=== PATIENT | female | born 1935 ===

== ENCOUNTER → 2017-12-22 | Day surgery (SDC) | payer BC ==
[2017-12-19 10:54] VITALS: Ht 165.1 cm; Wt 69.5 kg
[~2017-12-22] VITALS: Ht 165.1 cm; Wt 69.5 kg
[~2017-12-22] MED LIST: 500ML BSSPLUS 0.5ML EPI1:1000 IRRIG ONE; ACETAMINOPHEN 325 MG TAB PO PRN; AMLO5TAB2 PO; ASPI81TA28 PO; ATROPINE SULFATE 0.1 MG/ML 5ML SYR IV PRN; ATROPINE SULFATE 1% OP OINT PER APPLICATION CHARGE ONE; BSS FLUSH ONE; BUPIVACAINE HCL 0.75% 10 ML AMP/VIAL ONE; CALC0.2510 PO; CEFAZOLIN SOD 1 GM VIAL ONE; CLOP1TAB54 PO; DEXAMETHASONE SOD INJ 4 MG/ML VIAL ONE; EpHEDrine SULFATE INJ 50 MG/ML AMP IV PRN; EpINEphrine INJ 1MG/ML AMP 1 MG/ML AMP ONE; FENTANYL CITRATE INJ 50 MCG/1 ML 2 ML VIAL ONE; HYALURONIDASE HUMAN 150 UNIT/ML INJ ONE; HYDR-4717 PO; HYDR-5688 PO; INDOCYANINE GREEN 25 MG/10 ML ONE; IRBE-43 PO; LACTATED RINGER'S 1000ML 500 ML IV SCH; LIDOCAINE HCL 2% 2 ML VIAL (20MG/ML) ONE; MAGN400T6 PO; METO50TA16 PO; NEOMYCIN/POLYMYX/DEXAMETH OP OINT PER APP CHARGE ONE; OCUCOAT 1 ML SOLN IO ONE; OMEG10007 PO; PATIENT'S ALLERGY INFO NEEDS ENTERED SCH; POVIDONE-IODINE OP SOLN (SURGERY CNTR CHARGING ONLY) ONE; PRAV80TA2 PO; PROPARACAINE 0.5% OP SOLN PER DROP CHARGE OPR SCH; PROPOFOL IV EMULSION 10 MG/ML 20 ML VIAL IV ONE; TIMOLOL MALEATE 0.5% OP SOLN PER DROP CHARGE ONE; TRIAMCINOLONE ACETONIDE OPHTH 40 MG/ML VIAL STERILE IO ONE; VANCOMYCIN HCL 1000MG/20ML VIAL ONE
[2017-12-22] MEDS: PHENYLEPHRINE HCL 2.5% OP SOLN PER DROP CHARGE OPR SCH ×2 (11:08→11:13)
[2017-12-22] MEDS: TROPICAMIDE 1% OP SOLN PER DROP CHARGE OPR SCH ×2 (11:09→11:14)
--- NOTE | 2017-12-22 12:23 | History & Physical Bridge - SC ---
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 I have examined the patient, reviewed the History & Physical and in the interval since the performance of the History & Physical I have noted the following changes of clinical significance: No changes noted
--- NOTE | 2017-12-22 13:43 | [facility] Operative Report ---
Operative Report Date of Service Dec 22, 2017. Operative Report PREOPERATIVE DIAGNOSIS: Vitreomacular traction with lamellar macular hole, right eye. ICD10 CODE: H35.341 POSTOPERATIVE DIAGNOSIS: same. PROCEDURE: 1. Pars plana vitrectomy, 23 gauge. 2. Membrane peeling of the internal limiting membrane. 3. Fluid-air exchange. 4. Air-gas exchange w/ SF6 20 %. All to the right eye. CPT CODE: 68573 SURGEON: Gaurav Brown D.O. COMPLICATIONS: None. ESTIMATED BLOOD LOSS: None. SPECIMENS: None. ANESTHESIA: Retrobulbar block and MAC. INDICATIONS FOR PROCEDURE: The patient has a macular hole that is visually significant. Vitrectomy surgery is indicated to decrease risk of vision loss and potentially improve vision. CONSENT: The risks, benefits and alternatives were discussed with the patient including but not limited to decreased visual acuity, failure to achieve desired results, loss of the eye, infection, pain, glaucoma, lens changes, retinal tears, retinal detachment, the need for more procedures, drooping of the eyelid, blindness, and double vision. The patient is aware of risks and consents to the surgery. Consent is signed and on the chart. OPERATION AND FINDINGS: The patient was brought to the operating room where the patient was identified by name, date, and medical record number. The surgical site was confirmed with the informed written consent. The patient was sedated by the anesthesiology team after which a 50:50 mixture of 2% lidocaine and 0.75% bupivacaine with hyaluronidase was administered in a standard retrobulbar fashion. A total of 4 ml was administered without difficulty. The patient was then prepped and draped in the usual sterile manner for retinal surgery. A wire lid speculum was placed and an Elroy 23-gauge trocar cannula system was employed. The inferior temporal trocar cannula was first placed in an angled fashion 3.75mm posterior to the surgical limbus and the infusion cannula was inserted into this cannula after which the intravitreal position was verified prior to turning the infusion on. Two more trocar cannulas were then inserted in an angled fashion, one in the superior temporal, and one in the superior nasal quadrant both 3.75mm posterior to the surgical limbus. A light pipe and vitrector were then introduced into the eye and the BIOM wide angle viewing system was brought into place. Standard core vitrectomy was performed and the vitreous was insured to be totally detached from the posterior pole with the aid of the vitrector. Next 0.05ml of indocyanine green was placed over the macular surface to stain the internal limiting membrane. This was washed from the eye after 10 seconds. At this point a flat contact lens was placed on the surface of the eye and a flex scraper and ILM forceps were then used to gently peel the internal limiting membrane surrounding the lamellar macular hole without difficulty. At this point scleral depression was performed for 360 degrees and no retinal tears or detachments were noted. A soft tip cannula was used to perform a fluid- air exchange. Next, SF6 20% was injected in through the infusion cannula for a complete gas fill of the eye. The trocar cannulas were then removed and found to be air tight. The intraocular pressure was found to be within normal limits by palpation and subconjunctival injections of Kefzol and dexamethasone were administered inferiorly and superiorly. The wire lid speculum was removed. Maxitrol and timolol were applied to the surface of the eye. A light patch and shield were taped over the surface of the eye and the patient left the Operating Room in stable condition having tolerated the procedure well. DISPOSITION: A gas bracelet was placed on the patients wrist. The patient was instructed to maintain a face down position overnight. The patient is to call immediately if there are any problems overnight. I attest to the content of the Intraoperative Record and any orders documented therein. Any exceptions are noted below.
--- NOTE | 2017-12-22 13:44 | Discharge Instructions-SurgCtr ---
Discharge Instructions Date of Service Dec 22, 2017. Visit Reason for Visit: Right Eye Vitreomacular Traction Discharge Discharge Diagnosis / Problem: same Discharge Goals Goal(s): Improve function Activity Recommendations Activity Limitations: resume your previous activity Anesthesia . Post Anesthesia Instructions: If you have had General Anesthesia or IV Sedation: * Do not drive today. * Resume driving when surgeon permits. * Do not make important decisions or sign legal documents today. * Call surgeon for: 1. Temperature elevations greater than 101 degrees F. 2. Uncontrollable pain. 3. Excessive bleeding. 4. Persistent nausea and vomiting. 5. Medication intolerance (nausea, vomiting or rash). * For nausea and vomiting use only clear liquids such as: tea, soda, bouillon until nausea subsides, then gradually increase diet as tolerated. * If you have any concerns or questions, call your surgeon's office. If physician is unavailable and it is an emergency, call 911 or go to the nearest emergency room. . Instructions / Follow-Up Instructions / Follow-Up * May take Tylenol if needed for discomfort. * Do NOT lay flat on back and position head as follows: face forward chin down as much as possible. Sleep on left side. * Do NOT remove green bracelet until instructed to do so by your surgeon and follow these precautions: * No air travel * No travel above 2500 feet * No nitrous oxide (N2O). * Do NOT remove eye shield. * NO straining, heavy lifting (>15 pounds) or bending below waist. * Avoid getting water or soap directly into operative eye. * Do NOT rub eye. If you experience increasing eye pain not relieved by medication, please contact us immediately at [phone]. If you are unable to reach someone at the above number, call [phone] and ask to speak with the EYE DOCTOR FLEET DRIVER. Inform them that you are a Dr. Brown patient who had recent surgery. Diet Recommendations Home Diet: resume previous diet Procedures Procedures Performed: Right Eye Vitrectomy 23 Gauge, Membrane Peeling, Instillation of SF6 gas Pending Studies Studies pending at discharge: no Medical Emergencies . Who to Call and When: Medical Emergencies: If at any time you feel your situation is an emergency, please call 911 immediately. . Non-Emergent Contact Non-Emergency issues call your: House Registry Rn . . "Provider Documentation" section prepared by Gaurav Brown. .
[2017-12-22 13:45] VITALS: TEMP 36.7
--- NOTE | 2017-12-22 14:08 | Anesthesia Progress Nt - [facility] ---
Anesthesia Post Op Note Date & Time Dec 22, 2017 at 14:07 Vital Signs Pain Intensity: 0 Vital Signs Past 12 Hours Date Time Temp Pulse Resp B/P (MAP) Pulse Ox O2 Delivery O2 Flow Rate FiO2 12/22/17 13:45 36.7 63 16 152/74 (100) 95 Room Air 12/22/17 10:59 36.7 52 16 139/70 (93) 95 Room Air Notes Mental Status: alert / awake / arousable, participated in evaluation Pt Amnestic to Procedure: Yes Nausea / Vomiting: adequately controlled Pain: adequately controlled Airway Patency, RR, SpO2: stable & adequate BP & HR: stable & adequate Hydration State: stable & adequate Anesthetic Complications: no major complications apparent
[2017-12-22 14:19] VITALS: BP 148/76; PULSE 56; O2SAT 95
== END | disposition home or self-care (01) ==
LOC: X.SURG 10:35
PROVIDERS: ATTEND Ophthalmology
DX: H43.821 Vitreomacular adhesion, right eye (principal); H35.341 Macular cyst, hole, or pseudohole, right eye; J44.9 Chronic obstructive pulmonary disease, unspecified; G47.33 Obstructive sleep apnea (adult) (pediatric); I25.10 Atherosclerotic heart disease of native coronary artery without angina pectoris; Z98.61 Coronary angioplasty status; I10 Essential (primary) hypertension; M19.90 Unspecified osteoarthritis, unspecified site; I25.2 Old myocardial infarction; Z86.73 Personal history of transient ischemic attack (TIA), and cerebral infarction without residual deficits; Z85.828 Personal history of other malignant neoplasm of skin; Z98.890 Other specified postprocedural states; Z79.82 Long term (current) use of aspirin

== ENCOUNTER 2019-06-08 13:33 | Inpatient (IN) ==
[2019-06-08] MEDS ORDERED: SODIUM CHLORIDE 0.9% 500 ML IV SCH (14:00)
[2019-06-08] MEDS: MAGNESIUM SULFATE / D5W 1 GM/100 ML BAG IV SCH ×3 (14:11→17:07)
[2019-06-08] MEDS: METOPROLOL TARTRATE 1 MG/ML VIAL IV PRN ×2 (14:14→14:34)
[2019-06-08 14:15] LABS: Albumin Level 3.4 gm/dl (3.4-5.0); Calcium 9.5 mg/dl (8.5-10.1); Creatinine Clr Calc Pharmacy 19.5 ml/min; Est GFR (African American) 23.6; Est GFR (Non-African American) 20.4
[2019-06-08 14:16] LABS: Basophils # (auto) 0.05 K/uL (0-0.2); Basophils % (auto) 0.5 %; Eosinophils # (auto) 0.16 K/uL (0-0.5); Eosinophils % (auto) 1.7 %; Hematocrit (blood only) 34.3 % (37-47); Hemoglobin 11.5 g/dL (12.0-16.0); Immature Granulocytes # (auto) 0.02 K/uL (0.00-0.02); Immature Granulocytes % (auto) 0.2 %; Lymphocytes # (auto) 1.29 K/uL (1.2-3.4); Lymphocytes % (auto) 14.1 %; Mean Corpuscular Hemoglobin 31.3 pg (25-34); Mean Corpuscular Hgb Conc 33.5 g/dL (32-36); Mean Corpuscular Volume 93.5 fL (80-100); Mean Platelet Volume 10.3 fL (7.4-10.4); Monocytes % (auto) 13.1 %; Neutrophils # (auto) 6.43 K/uL (1.4-6.5); Neutrophils % (auto) 70.4 %; Platelet Count 229 K/uL (130-400); RDW Coefficient of Variation 14.4 % (11.5-14.5); RDW Standard Deviation 49.2 fL (36.4-46.3); Red Blood Count 3.67 M/uL (4.2-5.4); White Blood Count 9.15 K/uL (4.8-10.8)
--- NOTE | 2019-06-08 14:16 | XRay Report ---
XR chest 1V portable CLINICAL HISTORY: Atypical chest pain COMPARISON STUDY: No previous studies for comparison. FINDINGS: The heart is mildly enlarged. There is slight interstitial prominence without evidence of o vert failure. There is no lobar consolidation. There are no pleural effusions.[ IMPRESSION: 1. Mild cardiomegaly with subtle interstitial prominence 2. No evidence of focal pulmonary consolidation Electronically signed by: Rogelio Loo M.D. 06/08/2019 2:15 PM
[2019-06-08 14:34] LABS: Albumin Globulin Ratio 0.9 (0.9-2); Bilirubin,Total 0.6 mg/dl (0.2-1); Creatine Kinase MB 4.2 ng/ml (0.5-3.6); Globulin 3.6 gm/dl (2.5-4.0); Troponin I 0.506 ng/ml (0-0.045)
[2019-06-08] MEDS ORDERED: ASPIRIN CHEW 324 MG PO STA (14:46)
[2019-06-08] MEDS ORDERED: Heparin IV Standard *NO* Bolus IV ONE ×2 (14:46→15:50)
[2019-06-08 15:24] LABS: Partial Thromboplastin Ratio 0.9; Partial Thromboplastin Time 24.7 Seconds (21.0-31.0); Prothrombin Time 10.7 Seconds (9.0-12.0)
[2019-06-08] MEDS: HEPARIN SODIUM/DEXTROSE 25,000 UNITS/500 ML BAG IV SCH (15:29)
[2019-06-08] MEDS ORDERED: METOPROLOL TARTRATE 1 MG/ML VIAL IV PRN (15:51)
[2019-06-08] MEDS ORDERED: HEPARIN SODIUM/DEXTROSE 25,000 UNITS/500 ML BAG IV SCH (16:00)
[2019-06-08] MEDS ORDERED: METOPROLOL TARTRATE 1 MG/ML VIAL IV STA (16:21)
[2019-06-08 16:23] LABS: Magnesium 2.2 mg/dl (1.8-2.4); Thyroid Stimulating Hormone 2.88 uIu/ml (0.300-4.500)
[2019-06-08] MEDS ORDERED: dilTIAZem HCl 5 MG/ML 5 ML VIAL IV STA (16:37)
--- NOTE | 2019-06-08 16:42 | History & Physical Report ---
Date of Service June 08, 2019 Assessment & Plan (1) Atrial fibrillation with RVR: H/O paroxysmal atrial fibrillation not on anticoagulation presented to ER with C/O left chest pain, SOB, dizziness, heart racing started last night. In ER today pt found to be in A-fib RVR rate 120-130's. She was given ASA 324mg po, magnesium 2 gram IV, 500ml NSS bolus, 5mg Lopressor IV, Heparin IV. Pt since reports no further CP, SOB or dizziness. No leukocytosis, Troponin: 0.5, TSH: 2.8, magnesium: 2.2 -Cardizem drip -Continue metoprolol po -Heparin IV -Echo -NPO midnight -Cardiology consult (2) Elevated troponin: Troponin: 0.5. EKG: a-fib RVR, T wave inversions inferior leads, nonspecific changes anterolateral leads, (2018 ekg with t wave inversion III) R/O ACS. Risk factors: HTN, hyperlipidemia, h/o CAD. DDX: demand ischemia, elevation secondary to CKD -Monitor Vitals -Repeat EKG in am -Will trend troponin -Echo -Continue statin, aspirin, plavix, beta diana -Nitro prn CP and repeat EKG for CP (3) Hypoxia: Sats 88% on RA, up to 95% on 2L H/O pulmonary HTN, COPD. No cough, fever. -Supplemental oxygen -Monitor (4) CAD (coronary artery disease): H/O NSTEMI; S/P LISANDRA to left circumflex 2016 -Continue aspirin, Plavix (5) CKD (chronic kidney disease), stage IV: Cr: 2.1. H/O Cr: 1.73 on 04/2019 -Avoid nephrotoxic agents -Monitor renal functions (6) HTN (hypertension): BP on low side. Pt did not have am BP meds other than her metoprolol this morning -Hold hydralazine, amlodipine, valsartan and monitor BP as pt on cardizem IV for a-fib -Continue metoprolol (7) ABDIRIZAK (obstructive sleep apnea): Intolerant to CPAP. On 2L oxygen HS -Continue oxygen 2L HS (8) HLD (hyperlipidemia): -Continue statin (9) COPD (chronic obstructive pulmonary disease): -Continue Symbicort DVT Prophylaxis -On Heparin drip Full Code as per discussion with pt Follows with Dr Dangelo Solorzano in [place] for routine care Pt was seen and care coordinated with Dr Rodriguez. See addendum History of Present Illness Chief Complaint: Dizziness, SOB, chest pain Primary Care Provider: Dangelo Solorzano Pt is 84 y/o F with PMH HTN, HLD, CKD 4, h/o NSTEMI, S/P LISANDRA to left circumflex, paroxysmal atrial fibrillation, pulmonary hypertension, COPD, GERD, ABDIRIZAK on 2L oxygen HS, TIA 1996, spinal stenosis resented to ER with complaint of chest pain, shortness of breath, dizziness. Patient states yesterday was cleaning and organizing in her basement. States last night during sleep she started with left anterior chest pain described as an ache. Also had associated sensation of heart racing, shortness of breath and dizziness. Patient reports chest pain was intermittent throughout the night. She states was using her normal 2L oxygen. States this CP and dizziness and SOB was similar to when she was hospitalized in April 2019. Pt reports was told had A-fib while at [place] [facility] on 04/07/19 for CP, SOB and dizziness and pt then went to [facility] in [place]. She reports did not have A-fib while in [facility] and was not discharged on anticoagulants. Reports cardiac cath during the hospitalization and no further interventions at that time. Pt denies any recent illness. Drinks 2 cups decaf coffee and 2 cups decaf tea daily. Denies OTC decongestant use. Denies fever/chills, diaphoresis, N/V/D/C, PETERS, syncope, vision changes, neck pain, orthopnea, cough, sore throat, choking, otalgia, rhinorrhea, abdominal pain, paresthesias, weakness, extremity weakness, extremity edema, rashes, urinary symptoms. Hx Cr: 1.73 on 04/09/19 per pt's discharge summary from hospitalization 04/2019. Pt follows with Dr Quinton Ruvalcaba wholesale representative at [facility] in [place]. Follows with nephrology in [place]. In ER today pt found to be in A-fib RVR rate 120-130. She was given ASA 324mg po, magnesium 2 gram IV, 500ml NSS bolus, 5mg Lopressor IV, Heparin IV. Pt since reports no further CP, SOB or dizziness. Allergies Allergy/AdvReac Type Severity Reaction Status Date / Time No Known Allergies Allergy Unverified 12/19/17 10:49 Home Medications Home Medications Medication Instructions Recorded Confirmed Type amlodipine 5 mg PO BID 06/08/19 06/08/19 History aspirin 81 mg PO QAM 06/08/19 06/08/19 History budesonide-formoterol [Symbicort] 2 puff INHALATION BID 06/08/19 06/08/19 History calcitriol 0.25 mcg PO QAM 06/08/19 06/08/19 History calcium carbonate-vitamin D3 1 cap PO HS 06/08/19 06/08/19 History [Calcium 600 + D(3)] clopidogrel 75 mg PO QAM 06/08/19 06/08/19 History fluticasone propionate [Flonase 2 spray INTRANASAL DAILY 06/08/19 06/08/19 History Allergy Relief] hydralazine 75 mg PO BID 06/08/19 06/08/19 History hydrocodone-acetaminophen 1 tab PO BID PRN 06/08/19 06/08/19 History magnesium oxide 400 mg PO QAM 06/08/19 06/08/19 History metoprolol tartrate 50 mg PO BID 06/08/19 06/08/19 History omega 4-inq-fym-fish oil [[place]-3] 1 cap PO QAM 06/08/19 06/08/19 History pravastatin 80 mg PO HS 06/08/19 06/08/19 History valsartan 160 mg PO QAM 06/08/19 06/08/19 History Past Med/Surg History Medical History CAD (coronary artery disease) (Chronic) History of melanoma (Chronic) Excision to left forearm in / Stenosis of left subclavian artery (Chronic) S/P stent left subclavian on 04/21/17 Spinal stenosis (Chronic) TIA (transient ischemic attack) (Chronic) Paroxysmal atrial fibrillation (Chronic) Pulmonary hypertension (Chronic) GERD (gastroesophageal reflux disease) (Chronic) HLD (hyperlipidemia) (Chronic) HTN (hypertension) (Chronic) ABDIRIZAK (obstructive sleep apnea) (Chronic) intolerant to CPAP, On 2L oxygen HS CKD (chronic kidney disease), stage IV (Chronic) History of non-ST elevation myocardial infarction (NSTEMI) (Chronic) COPD (chronic obstructive pulmonary disease) (Chronic) Surgical History History of cataract surgery (Chronic) History of cholecystectomy (Chronic) History of cardiac cath (Chronic) 01/2017 - Right heart cath 04/02/17 left heart cath: mid LAD 20% stenosis, proximal circumflex to mid circumflex 85% stenosis s/p PCI left circumflex and LISANDRA. 90-95% left subclavian artery disease. [facility] Family History Other Coronary heart disease Hypertension Social History Preferred Language: Cymro Communication Ability: Effective Beliefs That Will Affect Care: None marital status: Current Living Situation: Spouse Other Information That Helps Us Care for You: No Feels Safe at Home: Yes Safety Concerns: Feels Safe At This Time Smoking Status: Former smoker Smoking End Date: Quit 1984. Smoked 1ppd x 20 years ; Hx Alcohol Use: No Hx Substance Use: No Review of Systems Review of Systems: All systems reviewed & are unremarkable except as noted in HPI & below Physical Exam Physical Exam: General: no distress, WDWN Head: normocephalic, atraumatic Eyes: PERRL, EOM's intact, conjunctiva non-injected, anicteric ENT: normal inspection external ears, nose, mucous membranes moist Neck: supple, trachea midline Lungs: clear, no respiratory distress, no wheezing/rhonchi/rales CV: irregularly irregular, rate 112, no murmur, no pretibial edema Abd: normal BS, soft, non-tender Ext: no cyanosis, no calf tenderness Neuro: A&O x 3, no focal deficits noted, normal affect Skin: warm, dry Results & Data Vital Signs (Past 12 Hours) Vital Signs Temp Pulse Resp BP Pulse Ox 06/08/19 16:10 105 H 14 120/81 91 06/08/19 16:00 90 06/08/19 15:58 110/83 84 L 06/08/19 15:30 127 H 21 99/74 L 06/08/19 15:20 111 H 21 104/80 93 06/08/19 15:10 100 H 17 116/89 94 06/08/19 15:00 94 H 16 97 06/08/19 14:50 98 H 17 129/74 98 06/08/19 14:41 115 H 17 108/85 97 06/08/19 14:40 105 H 14 97 06/08/19 14:34 106 H 95/63 L 06/08/19 14:30 128 H 14 95/63 L 98 06/08/19 14:20 122 H 14 92/62 L 97 06/08/19 14:14 139 H 119/76 06/08/19 14:12 131 H 14 116/76 96 06/08/19 14:10 121 H 20 97 06/08/19 14:00 138 H 17 108/72 92 06/08/19 13:56 94 06/08/19 13:50 115 H 17 95 06/08/19 13:49 144 H 19 94 06/08/19 13:41 36.8 C 120 H 22 94/67 L 91 06/08/19 13:40 106 H 20 94/67 L 95 06/08/19 13:20 91 Laboratory Results Short CBC 06/08/19 Range/Units 13:44 WBC 9.15 (4.8-10.8) K/uL Hgb 11.5 L (12.0-16.0) g/dL Hct 34.3 L (37-47) % Plt Count 229 (130-400) K/uL BMP 06/08/19 13:44 Sodium 139 Potassium 4.0 Chloride 107 Carbon Dioxide 23 BUN 37 H Creatinine 2.17 H Glucose 99 Calcium 9.5 Cardiac Enzymes 06/08/19 Range/Units 13:44 Total Creatine Kinase 107 (26-192) U/L CK-MB (CK-2) 4.2 H (0.5-3.6) ng/ml Troponin I 0.506 H* (0-0.045) ng/ml Liver Function 06/08/19 Range/Units 13:44 Total Bilirubin 0.6 (0.2-1) mg/dl AST 32 (15-37) U/L ALT 27 (12-78) U/L Alkaline Phosphatase 49 (45-117) U/L Albumin 3.4 (3.4-5.0) gm/dl Diagnostic Findings CXR: IMPRESSION: 1. Mild cardiomegaly with subtle interstitial prominence 2. No evidence of focal pulmonary consolidation ECG Rate (beats per minute): 123 Rhythm: atrial fibrillation Findings: + nonspecific-ST abn (Anterolateral) and + T-wave inversion (Inferior) Supervising Physician Co-Signing Physician Notes Attending addendum: Patient seen and examined care coordinated with Keya Jay PA-C This is a 84-year-old female with past medical history of coronary artery disease status post LISANDRA to left circumflex, history of paroxysmal A. fib not on any anticoagulation Follows with family physician Dr. Dangelo Solorzano at [facility] follows with Dr Quinton Ruvalcaba wholesale representative at [facility] in [place]. Recently admitted () at [facility] in [place], [place] Underwent cardiac cath, showed stable coronary artery disease did not require any intervention Patient was brought to the ER, with complaint of chest heaviness chest pain shortness of breath dizzy spell and lightheadedness Found to be in A. fib RVR, Patient was given IV Lopressor dose, started with IV heparin drip Converted to sinus rhythm after referral to the floor Physical exam: General: Very pleasant elderly female, no sign of distress HEENT: PERRLA Heart: Irregularly irregular, no JVD no carotid bruit no lower extremity edema Lungs: Clear to auscultate no wheeze or rales Abdomen: Soft nontender Neuro: No focal deficit A. fib RVR: History of paroxysmal A. fib noted in prior to episodes as per patient, has not been on any anticoagulation Admitted with left-sided chest heaviness dizzy spell shortness of breath Patient given IV Lopressor, Continue p.o. metoprolol prior dose IV heparin for stroke prophylaxis Cardiology consulted, Patient was started with Cardizem drip, converted to normal sinus upon arrival to floor, Cardizem drip discontinued Mild elevation of troponin possible in the setting of A. fib RVR Continue to monitor trend, resting echo ordered Patient will continue with statin beta-diana on aspirin and Plavix CODE STATUS: Full code Disposition expected to be discharged home when medically stable DVT prophylaxis IV heparin Attending addendum: Please to further documentation by Ivelisse Jay PA-C for other chronic issues Brenna Rodriguez MD
[2019-06-08] MEDS ORDERED: dilTIAZem HCl 125 MG in DEXTROSE 5% 100 ML IV SCH ×2 (16:45→17:15)
[2019-06-08] MEDS ORDERED: HYDROCODONE/ACETAMOPHEN 5/325MG TAB PO PRN (16:55)
[2019-06-08] MEDS ORDERED: ACETAMINOPHEN 325 MG TAB PO PRN (16:55)
[2019-06-08] MEDS ORDERED: NITROGLYCERIN SL 0.4 MG/TAB TAB SL PRN (16:55)
[2019-06-08] MEDS ORDERED: POLYETHYLENE (MIRALAX) 17 GM PACK PO PRN (16:55)
[2019-06-08] MEDS ORDERED: ONDANSETRON INJ 2 MG/ML 2 ML VIAL IV PRN (16:55)
--- NOTE | 2019-06-08 17:27 | Emergency Department Note ---
Entered by Leann Ballard acting as a scribe for Jose Raul Rogers MD History of Present Illness General Chief complaint: Chest Pain Time Seen by Provider: 06/08/19 13:49 Source: patient History of Present Illness Onset (ago): minute(s) (prior to arrival) Location: chest (left side) Pain Consistency: + other (episode) Quality: + other (chest tightness ) Associated symptoms: + other (+dizziness; -abdominal pain ) Treatments prior to arrival: other (Versed and Zofran (via EMS) ) The patient is an 84 year old female who presents to the Emergency Room with complaints of an episode of left sided chest pain that occurred prior to arrival. The patient describes the pain as tightness. The patient notes she got out of bed and took a shower before symptoms arose. The patient also notes she experienced dizziness that would not allow her to stand up. The patient reports that EMS gave her something for the dizziness en route, and she notes this helpe d resolve the dizziness. The patient denies abdominal pain. The patient notes she had A Fib and a myocardial infarction on the april. The patient also notes history of getting two stents placed in her heart 1 year ago. The patient also notes history of COPD and pulmonary hypertension. 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 EMS gave the patient Versed and Zofran prior to arrival. Home Medications Home Medications Medication Instructions Recorded Confirmed Type amlodipine 5 mg PO BID 06/08/19 06/08/19 History aspirin 81 mg PO QAM 06/08/19 06/08/19 History budesonide-formoterol [Symbicort] 2 puff INHALATION BID 06/08/19 06/08/19 History calcitriol 0.25 mcg PO QAM 06/08/19 06/08/19 History calcium carbonate-vitamin D3 1 cap PO HS 06/08/19 06/08/19 History [Calcium 600 + D(3)] clopidogrel 75 mg PO QAM 06/08/19 06/08/19 History fluticasone propionate [Flonase 2 spray INTRANASAL DAILY 06/08/19 06/08/19 History Allergy Relief] hydralazine 75 mg PO BID 06/08/19 06/08/19 History hydrocodone-acetaminophen 1 tab PO BID PRN 06/08/19 06/08/19 History magnesium oxide 400 mg PO QAM 06/08/19 06/08/19 History metoprolol tartrate 50 mg PO BID 06/08/19 06/08/19 History omega 1-vks-sjg-fish oil [[place]-3] 1 cap PO QAM 06/08/19 06/08/19 History pravastatin 80 mg PO HS 06/08/19 06/08/19 History valsartan 160 mg PO QAM 06/08/19 06/08/19 History Allergies Allergy/AdvReac Type Severity Reaction Status Date / Time No Known Allergies Allergy Unverified 12/19/17 10:49 Past Med/Surg History Medical History CAD (coronary artery disease) (Chronic) History of melanoma (Chronic) Excision to left forearm in / Stenosis of left subclavian artery (Chronic) S/P stent left subclavian on 04/21/17 Spinal stenosis (Chronic) TIA (transient ischemic attack) (Chronic) Paroxysmal atrial fibrillation (Chronic) Pulmonary hypertension (Chronic) GERD (gastroesophageal reflux disease) (Chronic) HLD (hyperlipidemia) (Chronic) HTN (hypertension) (Chronic) ABDIRIZAK (obstructive sleep apnea) (Chronic) intolerant to CPAP, On 2L oxygen HS CKD (chronic kidney disease), stage IV (Chronic) History of non-ST elevation myocardial infarction (NSTEMI) (Chronic) COPD (chronic obstructive pulmonary disease) (Chronic) Surgical History History of cataract surgery (Chronic) History of cholecystectomy (Chronic) History of cardiac cath (Chronic) 01/2017 - Right heart cath 04/02/17 left heart cath: mid LAD 20% stenosis, proximal circumflex to mid circumflex 85% stenosis s/p PCI left circumflex and LISANDRA. 90-95% left subclavian artery disease. [facility] Family History Other Coronary heart disease Hypertension Social History Preferred Language: Bulgarian Communication Ability: Effective Beliefs That Will Affect Care: None Current Living Situation: Spouse Other Information That Helps Us Care for You: No Feels Safe at Home: Yes Safety Concerns: Feels Safe At This Time Smoking Status: Former smoker Smoking End Date: Quit 1984. Smoked 1ppd x 20 y ears ; Hx Alcohol Use: No Hx Substance Use: No Review of Systems See HPI for pertinent positives & negatives. and A total of 10 systems reviewed and were otherwise negative Physical Exam Vital Signs Vital Signs - 24 hr 06/08/19 13:20 06/08/19 13:40 06/08/19 13:41 Temperature 36.8 C Temperature Source Oral Sepsis Recent Fever Within 48 Hours No Sepsis New/Unexplained Change in Mental Status No Sepsis Action Taken by Nursing No Action Required Oxygen Flow Rate - Titration 94 Pulse Rate 106 H 120 H Pulse Rate from SpO2 Sensor 82 Pulse Rhythm Irregular Pulse Strength Normal Respiratory Rate 20 22 Respiratory Effort / Characteristics Non-Labored Spontaneous Respiratory Depth Normal Respiratory Pattern Regular Blood Pressure 94/67 L 94/67 L Blood Pressure Mean 76 76 Pulse Oximetry 91 95 91 Oxygen Delivery Method Nasal Cannula Room Air Oxygen Flow Rate 2 06/08/19 13:49 06/08/19 13:50 06/08/19 13:56 Temperature Temperature Source Sepsis Recent Fever Within 48 Hours Sepsis New/Unexplained Change in Mental Status Sepsis Action Taken by Nursing Oxygen Flow Rate - Titration Pulse Rate 144 H 115 H Pulse Rate from SpO2 Sensor 82 95 H Pulse Rhythm Pulse Strength Respiratory Rate 19 17 Respiratory Effort / Characteristics Respiratory Depth Respiratory Pattern Blood Pressure Blood Pressure Mean Pulse Oximetry 94 95 94 Oxygen Delivery Method Nasal Cannula Oxygen Flow Rate 2 06/08/19 14:00 06/08/19 14:10 06/08/19 14:12 Temperature Temperature Source Sepsis Recent Fever Within 48 Hours Sepsis New/Unexplained Change in Mental Status Sepsis Action Taken by Nursing Oxygen Flow Rate - Titration Pulse Rate 138 H 121 H 131 H Pulse Rate from SpO2 Sensor 92 H 98 H 83 Pulse Rhythm Pulse Strength Respiratory Rate 17 20 14 Respiratory Effort / Characteristics Respiratory Depth Respiratory Pattern Blood Pressure 108/72 116/76 Blood Pressure Mean 84 89 Pulse Oximetry 92 97 96 Oxygen Delivery Method Oxygen Flow Rate 06/08/19 14:14 06/08/19 14:20 06/08/19 14:30 Temperature Temperature Source Sepsis Recent Fever Within 48 Hours Sepsis New/Unexplained Change in Mental Status Sepsis Action Taken by Nursing Oxygen Flow Rate - Titration Pulse Rate 139 H 122 H 128 H Pulse Rate from SpO2 Sensor 81 80 Pulse Rhythm Pulse Strength Respiratory Rate 14 14 Respiratory Effort / Characteristics Respiratory Depth Respiratory Pattern Blood Pressure 119/76 92/62 L 95/63 L Blood Pressure Mean 72 73 Pulse Oximetry 97 98 Oxygen Delivery Method Oxygen Flow Rate 06/08/19 14:34 06/08/19 14:40 06/08/19 14:41 Temperature Temperature Source Sepsis Recent Fever Within 48 Hours Sepsis New/Unexplained Change in Mental Status Sepsis Action Taken by Nursing Oxygen Flow Rate - Titration Pulse Rate 106 H 105 H 115 H Pulse Rate from SpO2 Sensor 88 86 Pulse Rhythm Pulse Strength Respiratory Rate 14 17 Respiratory Effort / Characteristics Respiratory Depth Respiratory Pattern Blood Pressure 95/63 L 108/85 Blood Pressure Mean 92 Pulse Oximetry 97 97 Oxygen Delivery Method Oxygen Flow Rate 06/08/19 14:50 06/08/19 15:00 06/08/19 15:10 Temperature Temperature Source Sepsis Recent Fever Within 48 Hours Sepsis New/Unexplained Change in Mental Status Sepsis Action Taken by Nursing Oxygen Flow Rate - Titration Pulse Rate 98 H 94 H 100 H Pulse Rate from SpO2 Sensor 83 90 94 H Pulse Rhythm Pulse Strength Respiratory Rate 17 16 17 Respiratory Effort / Characteristics Respiratory Depth Respiratory Pattern Blood Pressure 129/74 116/89 Blood Pressure Mean 92 98 Pulse Oximetry 98 97 94 Oxygen Delivery Method Oxygen Flow Rate 06/08/19 15:20 06/08/19 15:30 Temperature Temperature Source Sepsis Recent Fever Within 48 Hours Sepsis New/Unexplained Change in Mental Status Sepsis Action Taken by Nursing Oxygen Flow Rate - Titration Pulse Rate 111 H 127 H Pulse Rate from SpO2 Sensor 102 H Pulse Rhythm Pulse Strength Respiratory Rate 21 21 Respiratory Effort / Characteristics Respiratory Depth Respiratory Pattern Blood Pressure 104/80 99/74 L Blood Pressure Mean 88 82 Pulse Oximetry 93 Oxygen Delivery Method Oxygen Flow Rate GENERAL: Awake, alert, well-appearing, in no acute distress HENT: Normocephalic, atraumatic. Oropharynx unremarkable. EYES: Normal conjunctiva. Sclera non-icteric. NECK: Supple. No nuchal rigidity. FROM. No JVD. RESPIRATORY: Clear to auscultation. CARDIAC: Regular rate, normal rhythm. Extremities warm and well perfused. Pulses equal. ABDOMEN: Soft, non-distended. No tenderness to palpation. No rebound or gua rding. No masses. RECTAL: Deferred. MUSCULOSKELETAL: Chest examination reveals no tenderness. The back is symmetrical on inspection without obvious abnormality. There is no CVA tenderness to palpation. No joint edema. LOWER EXTREMITIES: Calves are equal size bilaterally and non-tender. No edema. No discoloration. NEURO: Normal sensorium. No sensory or motor deficits noted. SKIN: No rash or jaundice noted. Course 1352: Past medical records reviewed. The patient was evaluated in room C9. A complete history and physical exam was performed. 1506: I reviewed the patient's case with Ivelisse Jay-JITENDRA Landeros. Dr. Rodriguez-Hospitalist [facility] will evaluate the patient for further management. Consultations Consultation #1: I reviewed the patient's case with Ivelisse Landeros. [facility] the patient for further management. Time: 15:06 Administered Medications Heparin Sodium/Dextrose (Heparin Sodium/Dextrose) 25,000 units in 500 mls @ 23 mls/hr IV .[id number] JOLENE; Protocol Stop: 07/08/19 14:59 Last Admin: 06/08/19 15:29 Dose: 1,150 units/hr, 23 mls/hr Documented by: [id number] Cosigned by: [id number] Discontinued Medications Aspirin (Aspirin) 324 mg PO NOW STA Stop: 06/08/19 14:47 Last Admin: 06/08/19 15:32 Dose: 81 mg Documented by: [id number] Heparin Sodium/Dextrose () 1 ea IV ONE ONE; Protocol Stop: 06/08/19 14:47 Last Admin: 06/08/19 15:33 Dose: 1 ea Documented by: [id number] Sodium Chloride (Nss) 500 mls @ 999 mls/hr IV .[id number] JOLENE Stop: 06/08/19 14:30 Last Infusion: 06/08/19 15:33 Dose: 0 mls/hr Documented by: [id number] Admin: 06/08/19 14:11 Dose: 999 mls/hr Documented by: [id number] Magnesium Sulfate/Dextrose (Magnesium Sulfate / D5w) 1 gm in 100 mls @ 100 mls/hr IV Q1H [facility] Stop: 06/08/19 17:59 Last Admin: 06/08/19 17:07 Dose: Not Given Documented by: [id number] Admin: 06/08/19 15:34 Dose: 100 mls/hr Documented by: [id number] Infusion: 06/08/19 15:11 Dose: 100 mls/hr Documented by: [id number] Admin: 06/08/19 14:11 Dose: 100 mls/hr Documented by: [id number] Metoprolol Tartrate (Lopressor) 5 mg IV Q5M PRN PRN Reason: Tachycardia Stop: 07/08/19 14:00 Last Admin: 06/08/19 14:34 Dose: 5 mg Documented by: [id number] Admin: 06/08/19 14:14 Dose: 5 mg Documented by: [id number] Medical Decision Making Differential Diagnosis Differential diagnosis: Etiologies such as cardiac ischemia, aortic dissection, pulmonary embolism, pneumonia, pneumothorax, musculoskeletal, infections, pericarditis, myocarditis, esophageal rupture, gastrointestinal, as well as others were entertained. Medical Records Attestation: I reviewed the patient's medical records. Home Medications Current Medication List: was personally reviewed by me Laboratory Data Attestation: I reviewed the patient's lab results. Result diagrams: 06/08/19 13:44 06/08/19 13:44 Lab Results 06/08/19 06/08/19 06/08/19 Range/Units 13:44 13:44 13:44 WBC 9.15 (4.8-10.8) K/uL RBC 3.67 L (4.2-5.4) M/uL Hgb 11.5 L (12.0-16.0) g/dL Hct 34.3 L (37-47) % MCV 93.5 (80-100) fL MCH 31.3 (25-34) pg MCHC 33.5 (32-36) g/dL RDW Std Deviation 49.2 H (36.4-46.3) fL RDW Coeff of Jeffy 14.4 (11.5-14.5) % Plt Count 229 (130-400) K/uL MPV 10.3 (7.4-10.4) fL Immature Gran % (Auto) 0.2 % Neut % (Auto) 70.4 % Lymph % (Auto) 14.1 % [place] % (Auto) 13.1 % Eos % (Auto) 1.7 % Baso % (Auto) 0.5 % Immature Gran # (Auto) 0.02 (0.00-0.02) K/uL Neut # (Auto) 6.43 (1.4-6.5) K/uL Lymph # (Auto) 1.29 (1.2-3.4) K/uL [place] # (Auto) 1.20 H (0.11-0.59) K/uL Eos # (Auto) 0.16 (0-0.5) K/uL Baso # (Auto) 0.05 (0-0.2) K/uL PT 10.7 (9.0-12.0) Seconds INR 1.0 (0.9-1.1) APTT 24.7 (21.0-31.0) Seconds PTT Ratio 0.9 Sodium 139 (136-145) mmol/L Potassium 4.0 (3.5-5.1) mmol/L Chloride 107 (98-107) mmol/L Carbon Dioxide 23 (21-32) mmol/L Anion Gap 9.0 (3-11) BUN 37 H (7-18) mg/dl Creatinine 2.17 H (0.6-1.2) mg/dl Est Cr Clr Drug Dosing 19.5 ml/min Est GFR ( Amer) 23.6 Est GFR (Non-Af Amer) 20.4 BUN/Creatinine Ratio 17.0 (10-20) Glucose 99 (70-99) mg/dl Calcium 9.5 (8.5-10.1) mg/dl Magnesium 2.2 (1.8-2.4) mg/dl Total Bilirubin 0.6 (0.2-1) mg/dl AST 32 (15-37) U/L ALT 27 (12-78) U/L Alkaline Phosphatase 49 (45-117) U/L Total Creatine Kinase 107 (26-192) U/L CK-MB (CK-2) 4.2 H (0.5-3.6) ng/ml CK/CKMB % Calc 3.9 H (0-3.0) Troponin I 0.506 H* (0-0.045) ng/ml Total Protein 7.0 (6.4-8.2) gm/dl Albumin 3.4 (3.4-5.0) gm/dl Globulin 3.6 (2.5-4.0) gm/dl Albumin/Globulin Ratio 0.9 (0.9-2) Lipase 156 (73-393) U/L TSH 2.880 (0.300-4.500) uIu/ml Imaging Data Radiologist's Impression: Radiology results as stated below per my review and the radiologist's interpretation: XR chest 1V portable CLINICAL HISTORY: Atypical chest pain COMPARISON STUDY: No previous studies for comparison. FINDINGS: The heart is mildly enlarged. There is slight interstitial prominence without evidence of overt failure. There is no lobar consolidation. There are no pleural effusions.[ IMPRESSION: 1. Mild cardiomegaly with subtle interstitial prominence 2. No evidence of focal pulmonary consolidation Electronically signed by: Rogelio Loo M.D. 06/08/2019 2:15 PM ECG Data Attestation: I personally reviewed and interpreted this ECG as follows: Indication: chest pain Rate (beats per minute): 123 Rhythm: atrial fibrillation (with RVR) Findings: no ST depression and no ST elevation Blood Pressure Blood Pressure Findings: Low blood pressure Blood Pressure Disposition: further management by hospitalist MDM Narrative This is an 84-year-old female who presents emergency department in atrial fibrillation with RVR. The patient took her Lopressor this morning. She was given multiple doses of Lopressor here in the emergency department. She was also given 4 g of magnesium. She is not having any chest pain at this point however her troponin is elevated along with her CK and MB fractions. Based on this the patient was started on heparin. I did discuss the case with the hospitalist service who agreed to admit the patient. Patient and family were in agreement with the treatment plan. Impression & Plan Atrial fibrillation with RVR, Elevated troponin, Non-ST elevation [place] (NSTEMI) Discharge Plan Visit Data *Final* Discharge Date/Time: 06/08/19 16:21 Chief Complaint: Chest Pain Other Complaint: Shortness of Breath/Dyspnea ED Provider: Jose Raul Rogers Discharge Problem: Atrial fibrillation with RVR, Elevated troponin, Non-ST elevation [place] (NSTEMI) Patient Disposition: Admitted As Inpatient Discharge Instructions Interventions: ED Discharge Assessment Last Done: 06/08/19 16:21 The scribe's documentation has been prepared under my direction and personally reviewed by me in its entirety. I confirm that the note above accurately reflects all work, treatment, procedures, and medical decision making performed by me.
[2019-06-08] MEDS: BUDESONIDE/FORMOTEROL FUMARATE 160/4.5 60 PUFFS/INHALER INH SCH (20:49)
[2019-06-08] MEDS: CALCIUM 600MG + VIT D 400 IU TAB PO SCH (20:49)
[2019-06-08] MEDS: METOPROLOL TARTRATE 50 MG TAB PO SCH (20:49)
[2019-06-08] MEDS: PRAVASTATIN SOD 40 MG TAB PO SCH (20:49)
[2019-06-08 22:05] LABS: Partial Thromboplastin Time 53.7 Seconds (21.0-31.0)
[2019-06-09 08:08] LABS: Hemoglobin 11.1 g/dL (12.0-16.0); Mean Corpuscular Hemoglobin 31.4 pg (25-34); Mean Corpuscular Hgb Conc 33.6 g/dL (32-36); Mean Corpuscular Volume 93.5 fL (80-100); Mean Platelet Volume 10.4 fL (7.4-10.4); Platelet Count 192 K/uL (130-400); RDW Coefficient of Variation 14.4 % (11.5-14.5); Red Blood Count 3.53 M/uL (4.2-5.4); White Blood Count 8.77 K/uL (4.8-10.8)
[2019-06-09 08:32] LABS: Partial Thromboplastin Ratio 2.9
[2019-06-09 08:37] LABS: Partial Thromboplastin Time 77.5 Seconds (21.0-31.0)
[2019-06-09 08:43] LABS: BUN Creatinine Ratio 16.6 (10-20); Calcium 9.8 mg/dl (8.5-10.1); Est GFR (African American) 24.6; Est GFR (Non-African American) 21.2; Magnesium 2.5 mg/dl (1.8-2.4); Potassium 3.9 mmol/L (3.5-5.1)
[2019-06-09] MEDS: ASPIRIN 81 MG ECTAB PO SCH (08:48)
[2019-06-09] MEDS: CALCITRIOL 0.25 MCG CAPSULE PO SCH (08:48)
[2019-06-09] MEDS: OMEGA-3 (PURIFIED FISH OIL) 1 GM CAP PO SCH (08:48)
[2019-06-09] MEDS: METOPROLOL TARTRATE 50 MG TAB PO SCH ×2 (08:48→19:43)
[2019-06-09] MEDS: BUDESONIDE/FORMOTEROL FUMARATE 160/4.5 60 PUFFS/INHALER INH SCH ×2 (08:49→19:42)
[2019-06-09] MEDS: FLUTICASONE PROPIONATE NA SPR 16 GM BTL NAE SCH (08:49)
--- NOTE | 2019-06-09 08:53 | Nephrology Consultation ---
Date of Consultation June 09, 2019 Assessment & Plan (1) Acute kidney injury superimposed on CKD: baseline creatinine (or at least 2 recently reported values) from 04/2019 is 1.7 and 05/2019 is 1.8. Presenting creatinine on 06/08 of 2.2; improved slightly to 2.1 today but still meets RAMESH criteria. nonoliguric RAMESH, likely ischemic/ prerenal in the setting of cardiac arrhythmia, hypotension. chemistries acceptable apart form mild hyperchloremia, mild hypermagnesemia. CXR w/o overt fluid overload. hemodynamics today have improved/ been stabilized to acceptable ranges. mild anemia. -daily bmp -obtain UA if renal function worsens -held mag supplement -cont to hold OP valsartan. amlodipine -continue mgt of AF w/ RVR and other cardiology eval Present on Admission?: Yes (2) Atrial fibrillation with RVR: rate now well controlled; follow up on cardiology recommendations Present on Admission?: Yes History of Present Illness Reason for Consultation: RAMESH on CKD4 Requesting Physician: Dr Rodriguez Attending Physician: Brenna Rodriguez MD History of Present Illness 84 y/o F whom I'm asked to see for RAMESH on CKD4 was admitted yesterday w/ chest pain and dyspnea, presyncope and found to have AFib w/RVR (VR 120-130s) and hypoxia, relative hypotension. Other PMH includes HTN, HL, CAD w/ stent/ nstemi, plm HTN, COPD, GERD, ABDIRIZAK on 2L 02hs, 1997 TIA, spinal stenosis, remote melanoma excision. She lives in the [place] area and follows w/ [facility] for kidney care, DR Martinez. She was started on heparin and cardizem gtts and is being followed /managed for mild troponin elevation. She is NPO currently pending cardiology evaluation. by report her creatinine in April was 1.7; at another OP encounter on 05/07 her creatinine was 1.9. on presentation here yesterday was 2.2, improved to 2.1 today. pt spontaneously converted to nsr today. cardiology recommends consideration of pacemaker in future if RVR recurs; BB uptitration limited by bradycardia. pt feels tired but much improved and anxious for d/c home. 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 Allergies Allergy/AdvReac Type Severity Reaction Status Date / Time No Known Allergies Allergy Unverified 12/19/17 10:49 Home Medications Home Medications Medication Instructions Recorded Confirmed Type amlodipine 5 mg PO BID 06/08/19 06/08/19 History aspirin 81 mg PO QAM 06/08/19 06/08/19 History budesonide-formoterol [Symbicort] 2 puff INHALATION BID 06/08/19 06/08/19 History calcitriol 0.25 mcg PO QAM 06/08/19 06/08/19 History calcium carbonate-vitamin D3 1 cap PO HS 06/08/19 06/08/19 History [Calcium 600 + D(3)] clopidogrel 75 mg PO QAM 06/08/19 06/08/19 History fluticasone propionate [Flonase 2 spray INTRANASAL DAILY 06/08/19 06/08/19 History Allergy Relief] hydralazine 75 mg PO BID 06/08/19 06/08/19 History hydrocodone-acetaminophen 1 tab PO BID PRN 06/08/19 06/08/19 History magnesium oxide 400 mg PO QAM 06/08/19 06/08/19 History metoprolol tartrate 50 mg PO BID 06/08/19 06/08/19 History omega 4-cei-ulh-fish oil [[place]-3] 1 cap PO QAM 06/08/19 06/08/19 History pravastatin 80 mg PO HS 06/08/19 06/08/19 History valsartan 160 mg PO QAM 06/08/19 06/08/19 History Patient History Medical History CAD (coronary artery disease) (Chronic) History of melanoma (Chronic) Excision to left forearm in / Stenosis of left subclavian artery (Chronic) S/P stent left subclavian on 04/21/17 Spinal stenosis (Chronic) TIA (transient ischemic attack) (Chronic) Paroxysmal atrial fibrillation (Chronic) Pulmonary hypertension (Chronic) GERD (gastroesophageal reflux disease) (Chronic) HLD (hyperlipidemia) (Chronic) HTN (hypertension) (Chronic) ABDIRIZAK (obstructive sleep apnea) (Chronic) intolerant to CPAP, On 2L oxygen HS CKD (chronic kidney disease), stage IV (Chronic) History of non-ST elevation myocardial infarction (NSTEMI) (Chronic) COPD (chronic obstructive pulmonary disease) (Chronic) Surgical History History of cataract surgery (Chronic) History of cholecystectomy (Chronic) History of cardiac cath (Chronic) 01/2017 - Right heart cath 04/02/17 left heart cath: mid LAD 20% stenosis, proximal circumflex to mid circumflex 85% stenosis s/p PCI left circumflex and LISANDRA. 90-95% left subclavian artery disease. [facility] Family History Other Coronary heart disease Hypertension Social History Preferred Language: Yakut Communication Ability: Effective Beliefs That Will Affect Care: None marital status: Current Living Situation: Spouse Other Information That Helps Us Care for You: No Feels Safe at Home: Yes Safety Concerns: Feels Safe At This Time Smoking Status: Former smoker Smoking End Date: Quit 1984. Smoked 1ppd x 20 y ears ; Hx Alcohol Use: No Hx Substance Use: No Review of Systems Review of Systems: All systems reviewed & are unremarkable except as noted in HPI & below Constitutional: + fatigue; no weakness Eyes: no worsening vision Ear, Nose, Mouth, Throat: no dry mouth Respiratory: no dyspnea and no dyspnea on exertion Cardiovascular: no chest pain, no dyspnea on exertion, no palpitations, no lightheadedness and no edema Gastrointestinal: no abdominal pain, no vomiting and no diarrhea/loose stools Genitourinary: no dysuria, no difficulty urinating, no urinary frequency, no urinary hesitancy and no urinary urgency Musculoskeletal: no back pain Integumentary: no rash and no non-healing lesions Neurologic: + generalized weakness; no gait abnormality Psychiatric: no behavioral changes Endocrine: + fatigue Hematologic / Lymphatic: no easy bleeding Physical Exam Constitutional: well developed and well nourished onRA maneuvers readily for exam Eyes: EOM intact bilaterally ENMT: Ears: no external ear abnormality Nose: no external nose abnormality Mouth: + dry oral mucous membranes Neck: no nuchal rigidity Respiratory: normal respiratory effort Auscultation: + diminished lung sounds Cardiovascular: Rate/Rhythm: regular rate and regular rhythm Extremities: + edema (at most trace BL ankle) Gastrointestinal (Abdomen): Inspection/Auscultation: normal bowel sounds Percussion/Palpation: abdomen soft; abdomen nontender Musculoskeletal: Extremities: strength 5/5 throughout Skin: no rashes, warm and dry Neurologic: childress, fluent speech, no tremor Psychiatric: A+Ox3, euthymic affect Speech: normal rate/rhythm/volume of speech Insight: good insight Judgement: good judgement Results & Data Vital Signs (Past 12 Hours) Vital Signs Temp Pulse Resp BP Pulse Ox 06/09/19 06:59 37.1 C 59 L 16 119/56 L 94 06/09/19 04:31 36.7 C 74 16 161/84 H 94 06/08/19 22:56 36.5 C 73 16 152/77 H 94 Laboratory Results Abnormal lab results 06/08/19 06/08/19 06/08/19 Range/Units 13:44 13:44 16:59 RBC 3.67 L (4.2-5.4) M/uL Hgb 11.5 L (12.0-16.0) g/dL Hct 34.3 L (37-47) % RDW Std Deviation 49.2 H (36.4-46.3) fL [place] # (Auto) 1.20 H (0.11-0.59) K/uL APTT (21.0-31.0) Seconds Chloride (98-107) mmol/L BUN 37 H (7-18) mg/dl Creatinine 2.17 H (0.6-1.2) mg/dl Magnesium (1.8-2.4) mg/dl CK-MB (CK-2) 4.2 H (0.5-3.6) ng/ml CK/CKMB % Calc 3.9 H (0-3.0) Troponin I 0.506 H* 0.632 H* (0-0.045) ng/ml 06/08/19 06/08/19 06/09/19 Range/Units 19:49 21:32 07:51 RBC 3.53 L (4.2-5.4) M/uL Hgb 11.1 L (12.0-16.0) g/dL Hct 33.0 L (37-47) % RDW Std Deviation 49.0 H (36.4-46.3) fL [place] # (Auto) (0.11-0.59) K/uL APTT 53.7 H* (21.0-31.0) Seconds Chloride (98-107) mmol/L BUN (7-18) mg/dl Creatinine (0.6-1.2) mg/dl Magnesium (1.8-2.4) mg/dl CK-MB (CK-2) (0.5-3.6) ng/ml CK/CKMB % Calc (0-3.0) Troponin I 0.598 H* (0-0.045) ng/ml 06/09/19 06/09/19 Range/Units 07:51 07:51 RBC (4.2-5.4) M/uL Hgb (12.0-16.0) g/dL Hct (37-47) % RDW Std Deviation (36.4-46.3) fL [place] # (Auto) (0.11-0.59) K/uL APTT 77.5 H* (21.0-31.0) Seconds Chloride 109 H (98-107) mmol/L BUN 35 H (7-18) mg/dl Creatinine 2.10 H (0.6-1.2) mg/dl Magnesium 2.5 H (1.8-2.4) mg/dl CK-MB (CK-2) (0.5-3.6) ng/ml CK/CKMB % Calc (0-3.0) Troponin I (0-0.045) ng/ml Diagnostic Findings cxr > mild cmegaly; slight interstitial prominence; no consolidation
[2019-06-09] MEDS ORDERED: CLOPIDOGREL BISULFATE 75 MG TAB PO SCH (09:00)
[2019-06-09] MEDS ORDERED: MAGNESIUM OXIDE 400 MG TAB PO SCH (09:00)
--- NOTE | 2019-06-09 12:10 | Cardiology Consultation ---
Date of Consultation June 09, 2019 Assessment & Plan (1) Atrial fibrillation with RVR: Successfully converted to NSR with IV metoprolol. Continue metoprolol 50 mg BID She is borderline bradycardic, unable to increase beta diana or add CCB at this time. Consider future antiarrhythmic if needed CHADSVASC score of 7 (sex, age, hypertension, TIA, vascular disease), recommend mcc anticoagulation therapy with Coumadin. Not a candidate for DOAC due to age, renal dysfunction. Coumadin initiated at low dose 2.5 mg daily. Continue heparin for now. will need close f/u and monitoring of PT/INR with primary director of education or PCP. Stop Plavix to avoid triple therapy. Continue ASA given history of LISANDRA in 2017 (2) CAD (coronary artery disease): Mildly elevated troponin secondary to afib RVR, demand ischemia and elevated creatinine recent cath in April demonstrated no obstructive disease. continue home medications No anginal symptoms currently (3) Acute kidney injury superimposed on CKD: Nephrology consulted. Avoid nephrotoxins. ARB on hold (4) HTN (hypertension): Controlled. continue home meds (5) HLD (hyperlipidemia): continue statin Supervising Physician Co-Signing Physician Notes Patient seen and examined with Gwen Menendez PA-C. Agree with findings and assessment as above. Pt currently feeling well with daughter at bedside. spontaneously converted to sinus, unfortunately, unable to further uptitrate beta diana due to sinus randa. If goes back into afib in future may require PPM placement for tachybrady syndrome to further control afib. CHADSVASC of 7, will require anticoagulation, given renal function coumadin is only viable option. Discussed above in great detail with patient and daughter, satisfied with discussion. Ok to d/c to home from cardiac standpoint, currently in sinus and with ckd would not bridge with Lovenox. General: Awake, alert and oriented x 3. No acute distress. HEENT: Normocephalic, atraumatic. Pupils equal, round and reactive to light and accommodation. Extraocular muscles are intact. Anicteric sclera. Moist mucous membranes. Neck: No JVD. No bruit. Cardiovascular: Regular. Positive S-4. Normal S-1 and S-2. No S-3. 3/6 mid to late systolic ejection murmur, greatest at the right sternal border, second intercostal space with radiation to the bilateral carotids. No rubs. Pulmonary: Clear to auscultation bilaterally. No rales, rhonchi, or wheezing. Abdomen: Bowel sounds x 4, soft. No rebound, guarding or tenderness. No organomegaly. Extremities: No clubbing, cyanosis or edema. +2 pedal pulses bilaterally. Skin: Warm and dry. History of Present Illness Reason for Consultation: atrial fibrillation RVR Requesting Physician: Dr. Rodriguez Attending Physician: Dr. Dash History of Present Illness Patient is an 84-year-old female with history of Coronary artery disease status post PCI to left circumflex with a drug-eluting stent on 04/02/2017, peripheral vascular disease status post left subclavian stent 04/21/2017, Hypertension, dyslipidemia, history of paroxysmal atrial fibrillation, pulmonary hypertension, COPD, GERD, ABDIRIZAK on 2L oxygen HS, TIA 1996, and spinal stenosis. Patient follows with an outside director of education at [facility]. Per review of records she presented to [place] ER with chest pain and A. fib RVR in April 2019. She was transferred to outside hospital. She underwent repeat cardiac catheterization at that time, report not available. Apparently she had mild nonobstructive disease with patent stent. She was not discharged on anticoagulation therapy. Reasons unknown. She was continued on aspirin and Plavix. She was in normal state of health until yesterday when she developed increased dyspnea with exertion and chest pain. She presented to [facility] for evaluation and found to be in atrial fibrillation with rapid ventricular response. She converted to normal sinus rhythm with IV metoprolol and diltiazem drip. Creatinine was elevated above her baseline and she was admitted for observation. At time of consult patient reports feeling well. No recurrent chest pain or shortness of breath. No palpitations or dizziness. She denies issues of bleeding, melena, hematochezia or hemoptysis.No recent falls or head injuries. She has maintained normal sinus rhythm overnight. Heart rates in the 50s and 60s. Allergies Allergy/AdvReac Type Severity Reaction Status Date / Time No Known Allergies Allergy Unverified 12/19/17 10:49 Home Medications Home Medications Medication Instructions Recorded Confirmed Type amlodipine 5 mg PO BID 06/08/19 06/08/19 History aspirin 81 mg PO QAM 06/08/19 06/08/19 History budesonide-formoterol [Symbicort] 2 puff INHALATION BID 06/08/19 06/08/19 History calcitriol 0.25 mcg PO QAM 06/08/19 06/08/19 History calcium carbonate-vitamin D3 1 cap PO HS 06/08/19 06/08/19 History [Calcium 600 + D(3)] clopidogrel 75 mg PO QAM 06/08/19 06/08/19 History fluticasone propionate [Flonase 2 spray INTRANASAL DAILY 06/08/19 06/08/19 History Allergy Relief] hydralazine 75 mg PO BID 06/08/19 06/08/19 History hydrocodone-acetaminophen 1 tab PO BID PRN 06/08/19 06/08/19 History magnesium oxide 400 mg PO QAM 06/08/19 06/08/19 History metoprolol tartrate 50 mg PO BID 06/08/19 06/08/19 History omega [id number]-fish oil [[place]-3] 1 cap PO QAM 06/08/19 06/08/19 History pravastatin 80 mg PO HS 06/08/19 06/08/19 History valsartan 160 mg PO QAM 06/08/19 06/08/19 History Patient History Medical History CAD (coronary artery disease) (Chronic) History of melanoma (Chronic) Excision to left forearm in / Stenosis of left subclavian artery (Chronic) S/P stent left subclavian on 04/21/17 Spinal stenosis (Chronic) TIA (transient ischemic attack) (Chronic) Paroxysmal atrial fibrillation (Chronic) Pulmonary hypertension (Chronic) GERD (gastroesophageal reflux disease) (Chronic) HLD (hyperlipidemia) (Chronic) HTN (hypertension) (Chronic) ABDIRIZAK (obstructive sleep apnea) (Chronic) intolerant to CPAP, On 2L oxygen HS CKD (chronic kidney disease), stage IV (Chronic) History of non-ST elevation myocardial infarction (NSTEMI) (Chronic) COPD (chronic obstructive pulmonary disease) (Chronic) Surgical History History of cataract surgery (Chronic) History of cholecystectomy (Chronic) History of cardiac cath (Chronic) 01/2017 - Right heart cath 04/02/17 left heart cath: mid LAD 20% stenosis, proximal circumflex to mid circumflex 85% stenosis s/p PCI left circumflex and LISANDRA. 90-95% left subclavian artery disease. [facility] Family History Other Coronary heart disease Hypertension Social History Preferred Language: [place] Communication Ability: Effective Beliefs That Will Affect Care: None marital status: Current Living Situation: Spouse Other Information That Helps Us Care for You: No Feels Safe at Home: Yes Safety Concerns: Feels Safe At This Time Smoking Status: Former smoker Smoking End Date: Quit 1984. Smoked 1ppd x 20 years ; Hx Alcohol Use: No Hx Substance Use: No Review of Systems Review of Systems: All systems reviewed & are unremarkable except as noted in HPI & below Physical Exam Physical Exam: General: NAD. A+Ox3. HEENT: Normocephalic. Atraumatic. PERRL. EOMI. Conjunctiva and sclera clear. NECK: No carotid bruits. No JVD. Carotid upstrokes are brisk. Heart: RRR. S1 and S2 noted without murmur, rubs, gallops. PMI non displaced. Lungs: Clear to auscultation and percussion. No wheezes, rhonchi, rales. Abdomen: Normal bowel sounds. Soft. Nontender. No masses or organomegaly. No abdominal bruits. Extremities: No edema. No clubbing or cyanosis. Pulses: radial=2/4, posterior tibial=2/4, dorsalis pedis = 2/4. NEURO: No focal deficits. PSYCH: Normal. Results & Data Vital Signs (Past 12 Hours) Vital Signs Temp Pulse Resp BP Pulse Ox 06/09/19 06:59 37.1 C 59 L 16 119/56 L 94 06/09/19 04:31 36.7 C 74 16 161/84 H 94 Laboratory Results 06/09/19 06/09/19 06/09/19 Range/Units 07:51 07:51 07:51 WBC (4.8-10.8) K/uL RBC (4.2-5.4) M/uL Hgb (12.0-16.0) g/dL Hct (37-47) % MCV (80-100) fL MCH (25-34) pg MCHC (32-36) g/dL RDW Std Deviation (36.4-46.3) fL RDW Coeff of Jeffy (11.5-14.5) % Plt Count (130-400) K/uL MPV (7.4-10.4) fL Immature Gran % (Auto) % Neut % (Auto) % Lymph % (Auto) % [place] % (Auto) % Eos % (Auto) % Baso % (Auto) % Immature Gran # (Auto) (0.00-0.02) K/uL Neut # (Auto) (1.4-6.5) K/uL Lymph # (Auto) (1.2-3.4) K/uL [place] # (Auto) (0.11-0.59) K/uL Eos # (Auto) (0-0.5) K/uL Baso # (Auto) (0-0.2) K/uL PT (9.0-12.0) Seconds INR (0.9-1.1) APTT 77.5 H* (21.0-31.0) Seconds PTT Ratio 2.9 Sodium 141 (136-145) mmol/L Potassium 3.9 (3.5-5.1) mmol/L Chloride 109 H (98-107) mmol/L Carbon Dioxide 25 (21-32) mmol/L Anion Gap 7.0 (3-11) BUN 35 H (7-18) mg/dl Creatinine 2.10 H (0.6-1.2) mg/dl Est Cr Clr Drug Dosing 20.0 ml/min Est GFR ( Amer) 24.6 Est GFR (Non-Af Amer) 21.2 BUN/Creatinine Ratio 16.6 (10-20) Glucose 96 (70-99) mg/dl Calcium 9.8 (8.5-10.1) mg/dl Magnesium 2.5 H (1.8-2.4) mg/dl Total Bilirubin (0.2-1) mg/dl AST (15-37) U/L ALT (12-78) U/L Alkaline Phosphatase (45-117) U/L Total Creatine Kinase (26-192) U/L CK-MB (CK-2) (0.5-3.6) ng/ml CK/CKMB % Calc (0-3.0) Troponin I 0.467 H* (0-0.045) ng/ml Total Protein (6.4-8.2) gm/dl Albumin (3.4-5.0) gm/dl Globulin (2.5-4.0) gm/dl Albumin/Globulin Ratio (0.9-2) Triglycerides 87 (0-150) mg/dl Cholesterol 137 (0-200) mg/dl LDL Cholesterol, Calc 66 mg/dl VLDL Cholesterol, Calc 17 mg/dl HDL Cholesterol 54 mg/dl Cholesterol/HDL Ratio 3 Lipase (73-393) U/L TSH (0.300-4.500) uIu/ml 06/09/19 06/08/19 06/08/19 Range/Units 07:51 21:32 19:49 WBC 8.77 (4.8-10.8) K/uL RBC 3.53 L (4.2-5.4) M/uL Hgb 11.1 L (12.0-16.0) g/dL Hct 33.0 L (37-47) % MCV 93.5 (80-100) fL MCH 31.4 (25-34) pg MCHC 33.6 (32-36) g/dL RDW Std Deviation 49.0 H (36.4-46.3) fL RDW Coeff of Jeffy 14.4 (11.5-14.5) % Plt Count 192 (130-400) K/uL MPV 10.4 (7.4-10.4) fL Immature Gran % (Auto) % Neut % (Auto) % Lymph % (Auto) % [place] % (Auto) % Eos % (Auto) % Baso % (Auto) % Immature Gran # (Auto) (0.00-0.02) K/uL Neut # (Auto) (1.4-6.5) K/uL Lymph # (Auto) (1.2-3.4) K/uL [place] # (Auto) (0.11-0.59) K/uL Eos # (Auto) (0-0.5) K/uL Baso # (Auto) (0-0.2) K/uL PT (9.0-12.0) Seconds INR (0.9-1.1) APTT 53.7 H* (21.0-31.0) Seconds PTT Ratio 2.0 Sodium (136-145) mmol/L Potassium (3.5-5.1) mmol/L Chloride (98-107) mmol/L Carbon Dioxide (21-32) mmol/L Anion Gap (3-11) BUN (7-18) mg/dl Creatinine (0.6-1.2) mg/dl Est Cr Clr Drug Dosing ml/min Est GFR ( Amer) Est GFR (Non-Af Amer) BUN/Creatinine Ratio (10-20) Glucose (70-99) mg/dl Calcium (8.5-10.1) mg/dl Magnesium (1.8-2.4) mg/dl Total Bilirubin (0.2-1) mg/dl AST (15-37) U/L ALT (12-78) U/L Alkaline Phosphatase (45-117) U/L Total Creatine Kinase (26-192) U/L CK-MB (CK-2) (0.5-3.6) ng/ml CK/CKMB % Calc (0-3.0) Troponin I 0.598 H* (0-0.045) ng/ml Total Protein (6.4-8.2) gm/dl Albumin (3.4-5.0) gm/dl Globulin (2.5-4.0) gm/dl Albumin/Globulin Ratio (0.9-2) Triglycerides (0-150) mg/dl Cholesterol (0-200) mg/dl LDL Cholesterol, Calc mg/dl VLDL Cholesterol, Calc mg/dl HDL Cholesterol mg/dl Cholesterol/HDL Ratio Lipase (73-393) U/L TSH (0.300-4.500) uIu/ml 06/08/19 06/08/19 06/08/19 Range/Units 16:59 13:44 13:44 WBC (4.8-10.8) K/uL RBC (4.2-5.4) M/uL Hgb (12.0-16.0) g/dL Hct (37-47) % MCV (80-100) fL MCH (25-34) pg MCHC (32-36) g/dL RDW Std Deviation (36.4-46.3) fL RDW Coeff of Jeffy (11.5-14.5) % Plt Count (130-400) K/uL MPV (7.4-10.4) fL Immature Gran % (Auto) % Neut % (Auto) % Lymph % (Auto) % [place] % (Auto) % Eos % (Auto) % Baso % (Auto) % Immature Gran # (Auto) (0.00-0.02) K/uL Neut # (Auto) (1.4-6.5) K/uL Lymph # (Auto) (1.2-3.4) K/uL [place] # (Auto) (0.11-0.59) K/uL Eos # (Auto) (0-0.5) K/uL Baso # (Auto) (0-0.2) K/uL PT 10.7 (9.0-12.0) Seconds INR 1.0 (0.9-1.1) APTT 24.7 (21.0-31.0) Seconds PTT Ratio 0.9 Sodium 139 (136-145) mmol/L Potassium 4.0 (3.5-5.1) mmol/L Chloride 107 (98-107) mmol/L Carbon Dioxide 23 (21-32) mmol/L Anion Gap 9.0 (3-11) BUN 37 H (7-18) mg/dl Creatinine 2.17 H (0.6-1.2) mg/dl Est Cr Clr Drug Dosing 19.5 ml/min Est GFR ( Amer) 23.6 Est GFR (Non-Af Amer) 20.4 BUN/Creatinine Ratio 17.0 (10-20) Glucose 99 (70-99) mg/dl Calcium 9.5 (8.5-10.1) mg/dl Magnesium 2.2 (1.8-2.4) mg/dl Total Bilirubin 0.6 (0.2-1) mg/dl AST 32 (15-37) U/L ALT 27 (12-78) U/L Alkaline Phosphatase 49 (45-117) U/L Total Creatine Kinase 107 (26-192) U/L CK-MB (CK-2) 4.2 H (0.5-3.6) ng/ml CK/CKMB % Calc 3.9 H (0-3.0) Troponin I 0.632 H* 0.506 H* (0-0.045) ng/ml Total Protein 7.0 (6.4-8.2) gm/dl Albumin 3.4 (3.4-5.0) gm/dl Globulin 3.6 (2.5-4.0) gm/dl Albumin/Globulin Ratio 0.9 (0.9-2) Triglycerides (0-150) mg/dl Cholesterol (0-200) mg/dl LDL Cholesterol, Calc mg/dl VLDL Cholesterol, Calc mg/dl HDL Cholesterol mg/dl Cholesterol/HDL Ratio Lipase 156 (73-393) U/L TSH 2.880 (0.300-4.500) uIu/ml 06/08/19 Range/Units 13:44 WBC 9.15 (4.8-10.8) K/uL RBC 3.67 L (4.2-5.4) M/uL Hgb 11.5 L (12.0-16.0) g/dL Hct 34.3 L (37-47) % MCV 93.5 (80-100) fL MCH 31.3 (25-34) pg MCHC 33.5 (32-36) g/dL RDW Std Deviation 49.2 H (36.4-46.3) fL RDW Coeff of Jeffy 14.4 (11.5-14.5) % Plt Count 229 (130-400) K/uL MPV 10.3 (7.4-10.4) fL Immature Gran % (Auto) 0.2 % Neut % (Auto) 70.4 % Lymph % (Auto) 14.1 % [place] % (Auto) 13.1 % Eos % (Auto) 1.7 % Baso % (Auto) 0.5 % Immature Gran # (Auto) 0.02 (0.00-0.02) K/uL Neut # (Auto) 6.43 (1.4-6.5) K/uL Lymph # (Auto) 1.29 (1.2-3.4) K/uL [place] # (Auto) 1.20 H (0.11-0.59) K/uL Eos # (Auto) 0.16 (0-0.5) K/uL Baso # (Auto) 0.05 (0-0.2) K/uL PT (9.0-12.0) Seconds INR (0.9-1.1) APTT (21.0-31.0) Seconds PTT Ratio Sodium (136-145) mmol/L Potassium (3.5-5.1) mmol/L Chloride (98-107) mmol/L Carbon Dioxide (21-32) mmol/L Anion Gap (3-11) BUN (7-18) mg/dl Creatinine (0.6-1.2) mg/dl Est Cr Clr Drug Dosing ml/min Est GFR ( Amer) Est GFR (Non-Af Amer) BUN/Creatinine Ratio (10-20) Glucose (70-99) mg/dl Calcium (8.5-10.1) mg/dl Magnesium (1.8-2.4) mg/dl Total Bilirubin (0.2-1) mg/dl AST (15-37) U/L ALT (12-78) U/L Alkaline Phosphatase (45-117) U/L Total Creatine Kinase (26-192) U/L CK-MB (CK-2) (0.5-3.6) ng/ml CK/CKMB % Calc (0-3.0) Troponin I (0-0.045) ng/ml Total Protein (6.4-8.2) gm/dl Albumin (3.4-5.0) gm/dl Globulin (2.5-4.0) gm/dl Albumin/Globulin Ratio (0.9-2) Triglycerides (0-150) mg/dl Cholesterol (0-200) mg/dl LDL Cholesterol, Calc mg/dl VLDL Cholesterol, Calc mg/dl HDL Cholesterol mg/dl Cholesterol/HDL Ratio Lipase (73-393) U/L TSH (0.300-4.500) uIu/ml Diagnostic Findings EKG on admission: Atrial fibrillation with rapid ventricular response with premature ventricular or aberrantly conducted complexes Nonspecific T wave abnormality Abnormal ECG When compared with ECG of 22-DEC-2017 10:55, Atrial fibrillation has replaced Sinus rhythm Vent. rate has increased BY 67 BPM Non-specific change in ST segment in Anterior leads Nonspecific T wave abnormality now evident in Anterolateral leads Repeat EKG reviewed from this AM: Normal sinus rhythm Normal ECG When compared with ECG of 08-JUN-2019 13:38, Sinus rhythm has replaced Atrial fibrillation Vent. rate has decreased BY 61 BPM Nonspecific T wave abnormality has replaced inverted T waves in Inferior leads Nonspecific T wave abnormality no longer evident in Anterolateral leads
[2019-06-09 15:47] LABS: Partial Thromboplastin Ratio 2.3
[2019-06-09 15:58] LABS: Partial Thromboplastin Time 61.8 Seconds (21.0-31.0)
[2019-06-09] MEDS ORDERED: WARFARIN SOD 2.5 MG TAB PO SCH (16:00)
[2019-06-09] MEDS: HEPARIN SODIUM/DEXTROSE 25,000 UNITS/500 ML BAG IV SCH (17:37)
--- NOTE | 2019-06-09 18:01 | Hospitalist Progress Note ---
Date of Service June 09, 2019 Assessment & Plan (1) Atrial fibrillation with RVR: H/O paroxysmal atrial fibrillation not on anticoagulation presented to ER with C/O left chest pain, SOB, dizziness,/found to be in rapid A. fib RVR with heart rate 120s in ER Patient converted to sinus, after arrival to floor Remains in sinus with rate controlled/symptoms of dizzy spell chest heaviness shortness of breath has resolved Appreciate input from cardiology -Recommend to continue heparin IV bridge, and Coumadin -Echo shows no wall motion abnormality Patient will continue with p.o. Lopressor Will need to follow-up with coagulation clinic for chronic anticoagulation with Coumadin (2) Elevated troponin: Type II non-ST elevated GA with a setting of demand ischemia in rapid A. fib Echo shows no evidence of wall motion abnormality Appreciate input from cardiology Patient is continued with outpatient cardiac meds (3) Hypoxia: Symptom has resolved Possible secondary to rapid A. fib Currently in room air, not requiring supplemental oxygenation H/O pulmonary HTN, COPD. No cough, fever. - -Monitor (4) CAD (coronary artery disease): H/O NSTEMI; S/P LISANDRA to left circumflex 2016 -Continue aspirin, Plavix Echo shows no new wall motion abnormality (5) CKD (chronic kidney disease), stage IV: Acute renal failure in the setting of advanced CKD stage IV Cr: 2.1. H/O Cr: 1.73 on 04/2019 Record obtained from patient's family physician Dr. Dangelo Solorzano, Lab work on 05/07/2019: Shows creatinine 1.8/BUN 36.9 Appreciate input from nephrology Continue to monitor electrolytes, losartan kept on hold for acute renal failure (6) HTN (hypertension): BP stable now, continue beta-diana Valsartan kept on hold for acute renal failure in the setting of CKD stage (7) ABDIRIZAK (obstructive sleep apnea): Intolerant to CPAP. On 2L oxygen HS -Continue oxygen 2L HS (8) HLD (hyperlipidemia): -Continue statin (9) COPD (chronic obstructive pulmonary disease): -Continue Symbicort DVT Prophylaxis -On Heparin drip Full Code as per discussion with pt Follows with Dr Dangelo Solorzano in [place] for routine care Disposition: Expect to be discharged home when medically stable Subjective Remains in sinus rate controlled, denies of any chest pain no heaviness no dizzy spell or lightheadedness No hypoxia remains in room air, no cough no dyspnea on exertion Patient reports of feeling fine Has been ambulating independently without any symptom No fever or chills, vitals remained stable Review of Systems Review of Systems: All systems reviewed & are unremarkable except as noted in HPI & below Physical Exam Constitutional: WD/WN, vitals as above Eyes: PERRL, conjunctivae normal, anicteric sclerae ENMT: external ear and nose normal, oropharynx normal Neck: trachea midline, no thyromegaly Respiratory: normal respiratory effort, lungs clear to auscultation Cardiovascular: RRR, no murmur, no edema Gastrointestinal (Abdomen): normal bowel sounds, soft, nontender, no hepatosplenomegaly Musculoskeletal: no cyanosis or clubbing, extremities motor strength 5/5 Skin: no rashes, warm and dry Neurologic: PERRL, EOMI, accommodation nl, no face palsy, no dysarthria Psychiatric: A+Ox3, euthymic affect Results & Data Vital Signs (Past 12 Hours) Vital Signs Temp Pulse Resp BP Pulse Ox 06/09/19 15:25 36.7 C 66 18 135/68 94 06/09/19 06:59 37.1 C 59 L 16 119/56 L 94
[2019-06-09] MEDS: PRAVASTATIN SOD 40 MG TAB PO SCH (19:43)
[2019-06-09] MEDS: CALCIUM 600MG + VIT D 400 IU TAB PO SCH (19:43)
[2019-06-10 01:16] LABS: Appearance Urine Clear (Clear); Bacteria Urine Automated Negative (Negative); Bilirubin Urine Negative (Negative); Blood Urine Negative (Negative); Color Urine Yellow; Glucose Urine UA Negative (Negative); Ketones Urine Negative (Negative); Leukocyte Esterase Urine Trace (Negative); Nitrite Urine Negative (Negative); Protein Urine Negative (Negative); RBC Urine Automated 0-4 /hpf (0-4); Specific Gravity Urine 1.013 (1.000-1.030); Urobilinogen Urine Negative (Negative); pH Urine 6.5 (4.5-7.5)
[2019-06-10 08:28] LABS: INR 1.1 (0.9-1.1); Prothrombin Time 10.9 Seconds (9.0-12.0)
[2019-06-10 08:34] LABS: Partial Thromboplastin Time 53.6 Seconds (21.0-31.0)
[2019-06-10 08:50] LABS: BUN Creatinine Ratio 15.8 (10-20); Calcium 9.7 mg/dl (8.5-10.1); Creatinine Clr Calc Pharmacy 19.8 ml/min; Est GFR (African American) 24.3; Potassium 3.9 mmol/L (3.5-5.1)
[2019-06-10] MEDS: OMEGA-3 (PURIFIED FISH OIL) 1 GM CAP PO SCH (09:14)
[2019-06-10] MEDS: CALCITRIOL 0.25 MCG CAPSULE PO SCH (09:14)
[2019-06-10] MEDS: FLUTICASONE PROPIONATE NA SPR 16 GM BTL NAE SCH (09:14)
[2019-06-10] MEDS: METOPROLOL TARTRATE 50 MG TAB PO SCH (09:14)
[2019-06-10] MEDS: ASPIRIN 81 MG ECTAB PO SCH (09:14)
[2019-06-10] MEDS: BUDESONIDE/FORMOTEROL FUMARATE 160/4.5 60 PUFFS/INHALER INH SCH (09:14)
[2019-06-10] MEDS ORDERED: WARFARIN SOD 2.5 MG TAB PO ONE (12:15)
--- NOTE | 2019-06-10 12:15 | Discharge Summary ---
Date of Service June 10, 2019 Admission HPI Per Admitting Provider Pt is 84 y/o F with PMH HTN, HLD, CKD 4, h/o NSTEMI, S/P LISANDRA to left circumflex, paroxysmal atrial fibrillation, pulmonary hypertension, COPD, GERD, ABDIRIZAK on 2L oxygen HS, TIA 1996, spinal stenosis resented to ER with complaint of chest pain, shortness of breath, dizziness. Patient states yesterday was cleaning and organizing in her basement. States last night during sleep she started with left anterior chest pain described as an ache. Also had associated sensation of heart racing, shortness of breath and dizziness. Patient reports chest pain was intermittent throughout the night. She states was using her normal 2L oxygen. States this CP and dizziness and SOB was similar to when she was hospitalized in April 2019. Pt reports was told had A-fib while at [place] [facility] on 04/07/19 for CP, SOB and dizziness and pt then went to [facility] in [place]. She reports did not have A-fib while in [facility] and was not discharged on anticoagulants. Reports cardiac cath during the hospitalization and no further interventions at that time. Pt denies any recent illness. Drinks 2 cups decaf coffee and 2 cups decaf tea daily. Denies OTC decongestant use. Denies fever/chills, diaphoresis, N/V/D/C, PETERS, syncope, vision changes, neck pain, orthopnea, cough, sore throat, choking, otalgia, rhinorrhea, abdominal pain, paresthesias, weakness, extremity weakness, extremity edema, rashes, urinary symptoms. Hx Cr: 1.73 on 04/09/19 per pt's discharge summary from hospitalization 04/2019. Pt follows with Dr Quinton Ruvalcaba data base administrator at [facility] in [place]. Follows with nephrology in [place]. In ER today pt found to be in A-fib RVR rate 120-130. She was given ASA 324mg po, magnesium 2 gram IV, 500ml NSS bolus, 5mg Lopressor IV, Heparin IV. Pt since reports no further CP, SOB or dizziness. Principal Diagnosis A. fib RVR, acute renal failure, baseline CKD stage IV, take anticoagulation with Coumadin for stroke prophylaxis Discharge Exam GENERAL: No sign of distress, HEENT: Sclera nonicteric, pink-purple bilateral equal reactive to light extraocular muscle intact Normal oral mucosa, neck: No JVD, no thyromegaly, trachea midline Lungs: Clear to auscultate, no wheeze or rales Cardiovascular: Regular S1 and S2, no murmur or gallop, no JVD, no lower extremity edema Abdomen: Soft, nontender, bowel sounds active, no hepatosplenomegaly Extremities: No rash or deformity, normal joint, Neuro: No focal neurological deficit, no dysarthria, no facial droop Psych: Alert awake oriented x3: Euthymic Skin: No rash LYMPH NODES: No cervical lymphadenopathy Discharge Data Allergies Allergy/AdvReac Type Severity Reaction Status Date / Time No Known Allergies Allergy Unverified 12/19/17 10:49 Consultations 06/08/19 15:07 ED Decision to Admit Stat 06/08/19 16:24 Consult Health Information Management Stat 06/08/19 16:26 Consult Health Information Management Routine 06/08/19 16:55 Consult Cardiology Routine Consult Case Management - Discharge Planning Routine Consult Nephrology Routine Hospital Course (1) Atrial fibrillation with RVR: H/O paroxysmal atrial fibrillation not on anticoagulation presented to ER with C/O left chest pain, SOB, dizziness,/found to be in rapid A. fib RVR with heart rate 120s in ER Patient converted to sinus, after arrival to floor Remains in sinus with rate: / symptoms of dizzy spell chest heaviness shortness of breath has resolved Appreciate input from cardiology -Patient has elevated [id number] Score : 7 ( age(2)/sex F (1) /HTN (1) /prior hx of TIA(2) /DM ( 1) -Patient is started with p.o. Coumadin 2.5 mg daily Has been on IV heparin for 48 hours Given patient's short episode of atrial fibrillation, will be discharged with p.o. Coumadin only without any bridge therapy Plavix will be discontinued, high risk of bleeding with combination of aspirin and Plavix and Coumadin Patient had cardiac stent placed 2016, safe to discontinue dual antiplatelet, Continue with aspirin and Coumadin Patient is given prescription for repeat INR check on 06/14/2019 Goal INR 23 Patient wants to follow-up with her primary physician Dr. Dangelo Solorzano at [place] Records from this hospital stay will be faxed to Dr. Solorzano's office Patient is asked to follow-up with her family physician for PT/INR monitoring and Coumadin dosing For rate and rhythm control, patient is asked to continue her home dose of Lopressor 50 mg twice daily Consult establish care with [facility] cardiology group at [facility] office will call to schedule with appointment (2) Elevated troponin: Type II non-ST elevated PA with a setting of demand ischemia in rapid A. fib Echo shows no evidence of wall motion abnormality Appreciate input from cardiology Patient is continued with outpatient cardiac meds Plavix discontinued, as patient is started with Coumadin for long-term anticoagulation in the setting of atrial fibrillation: Stroke prophylaxis (3) Hypoxia: Symptom has resolved Possible secondary to rapid A. fib Currently in room air, not requiring supplemental oxygenation H/O pulmonary HTN, COPD. No cough, fever. - Respiratory status stable (4) CAD (coronary artery disease): H/O NSTEMI; S/P LISANDRA to left circumflex 2016-completed 12 months of dual antiplatelet treatment with aspirin and Plavix Patient will continue with aspirin beta-diana and statin Plavix is discontinued, need to high risk of bleeding with addition of Coumadin Echo shows no new wall motion abnormality (5) CKD (chronic kidney disease), stage IV: Acute renal failure in the setting of advanced CKD stage IV Cr: 2.1. H/O Cr: 1.73 on 04/[address] [facility] Record obtained from patient's family physician Dr. 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 fib RVR Since been on multiple antihypertensive medications: Lopressor, Norvasc, hydralazine, losartan Beta-diana continued, Norvasc and hydralazine kept on hold for hypotension Losartan kept on hold for worsening of renal function/RAMESH Renal function improved to approximate baseline Patient will be discharged on prior dose of Lopressor and losartan Asked to DC Norvasc and hydralazine to prevent episode of hypotension Will need close monitoring with family physician for monitoring of blood pressure and adjust treatment (7) ABDIRIZAK (obstructive sleep apnea): Intolerant to CPAP. On 2L oxygen HS -Continue oxygen 2L HS (8) HLD (hyperlipidemia): -Continue statin (9) COPD (chronic obstructive pulmonary disease): -Continue Symbicort DVT Prophylaxis -Coumadin Full Code as per discussion with pt Follows with Dr Dangelo Solorzano in [place] for routine care Disposition:stable to be discharged home today Total Time Total Time Spent Total Time Spent (In Minutes): Approximately 45 minutes Total Time Includes: Examination of the Patient, Discharge Planning, Medication Reconciliation and Communication With Other Providers Discharge Plan Discharge Items Patient Disposition: Home - Self-Care Reason For Visit: AFIB RVR Discharge Diagnosis: A. fib RVR. Acute renal failure on chronic kidney disease 4 Coumadin anticoagulation Discharge Goals: Decrease discomfort, Diagnostic testing and Therapeutic intervention Activity: Resume your previous activity Non-emergency contact: Primary Care Provider Call non-emergency contact if: you have any medication questions Follow-up/Referrals: Srinivas Dash DO [Physician] - (Cardiology follow-up in few weeks, office will call with appointment) Dangelo Solorzano [Primary Care Provider] - (Please follow-up with Dr. Solorzano in a week) Diet: Heart Healthy [facility] Provider Instructions: Hospital follow-up with your family physician in a week, please call office to schedule an appointment Lab work: PT/INR, basic metabolic panel next Friday06/14/2019 Please follow-up with Dr. Solorzano's office for the lab report Cardiology follow-up with [facility] cardiology group at [facility] in a few weeks office will call with appointment Please follow-up with [place] [facility] if Dr. Solorzano's office unable to monitor and adjust your Coumadin dose Continue follow-up with your naturalization examiner in [place] Medication change: New medication: Coumadin 2.5 mg daily: Blood thinner to prevent stroke/due to your irregular heartbeat (A. fib) STOP TAKIN. Plavix 75 mg daily-increased risk of bleeding with aspirin and Coumadin 2. Amlodipine 5 mg twice daily: High blood pressure meds 3. Hydralazine 75 mg twice daily: High blood pressure meds Continue to follow-up with your family physician for close monitoring of blood pressure Prescriptions: New warfarin [Coumadin] 2.5 mg Tablet 2.5 mg PO DAILY Qty: 30 RF: 0 Continued aspirin 81 mg Tablet,Delayed Release (Dr/Ec) 81 mg PO QAM RF: 0 pravastatin 80 mg tablet 80 mg PO HS RF: 0 metoprolol tartrate 50 mg tablet 50 mg PO BID RF: 0 calcitriol 0.25 mcg capsule 0.25 mcg PO QAM RF: 0 valsartan 160 mg tablet 160 mg PO QAM RF: 0 Calcium 600 + D(3) 600 mg calcium- 200 unit Capsule 1 cap PO HS RF: 0 Symbicort 160-4.5 mcg/actuation Hfa Aerosol Inhaler 2 puff INHALATION BID RF: 0 [place]-3 350 mg-235 mg- 90 mg-597 mg Capsule,Delayed Release(Dr/Ec) 1 cap PO QAM RF: 0 magnesium oxide 400 mg magnesium Tablet 400 mg PO QAM RF: 0 hydrocodone-acetaminophen 5-325 mg Tablet 1 tab PO BID PRN (Reason: Pain) RF: 0 fluticasone propionate [Flonase Allergy Relief] 50 mcg/actuation Bland,Suspension 2 spray INTRANASAL DAILY RF: 0 Discontinued clopidogrel 75 mg tablet 75 mg PO QAM RF: 0 amlodipine 5 mg tablet 5 mg PO BID RF: 0 hydralazine 50 mg tablet 75 mg PO BID RF: 0 Stand-Alone Forms: [facility] Discharge Orders: Discharge Order (Routine); Ordered 06/10/19 Ordered By: Brenna Rodriguez Admission Data Admit Date/Time: 06/08/19 15:40 Attending Provider: Brenna Rodriguez Admit Provider: Brenna Rodriguez Primary Care Provider: Dangelo Solorzano Other Providers: Brenna Rodriguez ; Srinivas Dash Stacy L. Service: Telemetry
--- NOTE | 2019-06-10 14:08 | Nephrology Progress Note ---
Date of Service June 10, 2019 Assessment & Plan (1) Acute kidney injury superimposed on CKD: baseline creatinine (or at least 2 recently reported values) from 04/2019 is 1.7 and 05/2019 is 1.8. Presenting creatinine on 06/08 of 2.2; stable/ with little change at 2.1 today but still meets RAMESH criteria. nonoliguric RAMESH, likely ischemic/ prerenal in the setting of cardiac arrhythmia, hypotension. chemistries acceptable apart form mild hyperchloremia, mild hypermagnesemia. CXR w/o overt fluid overload. hemodynamics today have improved/ been stabilized to acceptable ranges. mild anemia. sees Dr Martinez in September she reports -daily bmp -obtain UA if renal function worsens -cont to hold OP valsartan > would restart ARB in - if renal function remains stable -continue mgt of AF w/ RVR and other cardiology eval Will sign off ; pls call if ? (2) Atrial fibrillation with RVR: rate now well controlled; follow up on cardiology recommendations; remains on hpearin gtt Subjective seen on rounds at 0745; slept well, no further sob,lightheadedness, + urinary frequency w/o dysuria or other voiding issue. ate some breakfast/ not a big brkfst person. no edema, no palpitatins Review of Systems Review of Systems: All systems reviewed & are unremarkable except as noted in HPI & below Physical Exam Constitutional: well developed and well nourished onRA, maneuvers readily for exam Eyes: EOM intact bilaterally ENMT: Ears: no external ear abnormality Nose: no external nose abnormality Mouth: + dry oral mucous membranes Neck: no nuchal rigidity Respiratory: normal respiratory effort Auscultation: + diminished lung sounds and + crackles (bibasilar) Cardiovascular: Rate/Rhythm: regular rate and regular rhythm (w/ some skipped beats) Gastrointestinal (Abdomen): Inspection/Auscultation: normal bowel sounds Percussion/Palpation: abdomen soft; abdomen nontender Musculoskeletal: Extremities: strength 5/5 throughout Skin: no rashes, warm and dry Neurologic: childress, fluent speech, no tremor Psychiatric: A+Ox3, euthymic affect Speech: normal rate/rhythm/volume of speech Insight: good insight Judgement: good judgement Results & Data Vital Signs (Past 12 Hours) Vital Signs Temp Pulse Resp BP BP Pulse Ox 06/10/19 13:26 36.9 C 61 18 129/69 159/85 H 92 06/10/19 11:01 36.9 C 61 18 129/69 92 06/10/19 07:50 37.5 C 61 20 159/73 H 91 06/10/19 03:39 37.2 C 63 20 159/85 H 94
== END 2019-06-10 14:30 | disposition home or self-care (01) | DRG 281 ==
LOC: ED 13:33 → 2S 15:40

== ENCOUNTER 2022-10-22 17:51 | Inpatient (IN) ==
[2022-10-22 20:32] LABS: Basophils # (auto) 0.07 K/uL (0-0.2); Basophils % (auto) 0.7 %; Eosinophils # (auto) 0.14 K/uL (0-0.50); Eosinophils % (auto) 1.4 %; Hematocrit (blood only) 36.9 % (34.1-44.9); Hemoglobin 12.1 g/dl (12.0-16.0); Immature Granulocytes # (auto) 0.03 K/uL (0.00-0.02); Immature Granulocytes % (auto) 0.3 %; Lymphocytes # (auto) 1.31 K/uL (1.2-3.4); Lymphocytes % (auto) 13.6 %; Mean Corpuscular Hemoglobin 32.3 pg (25.0-34.0); Mean Corpuscular Hgb Conc 32.8 g/dL (32.0-36.0); Mean Corpuscular Volume 98.4 fL (80.0-100.0); Monocytes # (auto) 0.97 K/uL (0.24-0.82); Neutrophils # (auto) 7.14 K/uL (1.4-6.5); Platelet Count 243 K/uL (130-400); RDW Coefficient of Variation 14.6 % (11.5-14.5); Red Blood Count 3.75 M/uL (3.93-5.22); White Blood Count 9.66 K/ul (4.8-10.8)
[2022-10-22 20:43] LABS: INR 1.1 (0.9-1.1); Partial Thromboplastin Ratio 0.9; Partial Thromboplastin Time 26.1 Seconds (21.0-31.0); Prothrombin Time 11.8 Seconds (9.0-12.0)
[2022-10-22 20:53] LABS: Alanine Aminotransferase 23 U/L (7-52); Albumin Globulin Ratio 1.3 (0.9-2); Alkaline Phosphatase 65 U/L (34-104); Anion Gap 10 (3-11); Aspartate Aminotransferase 29 U/L (13-39); BUN Creatinine Ratio 14.4 (10-20); Bilirubin,Total 0.8 mg/dl (0.2-1.0); Blood Urea Nitrogen 42 mg/dl (6-23); Calcium 9.4 mg/dl (8.5-10.1); Carbon Dioxide 22 mmol/L (21-32); Chloride 104 mmol/L (98-107); Est GFR (African American) 16.2 ml/min; Glucose 127 mg/dl (70-99(Fasting)); Magnesium 2.6 mg/dl (1.7-2.4); Potassium 4.5 mmol/L (3.5-5.1); Sodium 136 mmol/L (136-145)
--- NOTE | 2022-10-22 21:22 | XRay Report ---
SINGLE VIEW CHEST CLINICAL HISTORY: Dyspnea FINDINGS: An AP, portable, upright chest radiograph is compared to study dated 06/08/2019. The heart is enlarged noting atherosclerotic calcification of the thoracic aorta. The pulmonary vasculature is no ncongested. Chronic interstitial thickening similar to previous. There is bibasilar scarring/atelecta sis. The lungs and pleural spaces are otherwise clear. No pneumothorax is seen. The skeletal structur es are osteopenic. The bony thorax is grossly intact. Arthritic change is seen in the shoulders. IMPRESSION: Cardiomegaly with no active disease in the chest. ACT 112: Negative or not required by law. Electronically signed by: Mando Farley M.D. 10/22/2022 9:21 PM
[2022-10-22] MEDS ORDERED: ALBUMIN 25% 100 mL 25 GM/100 ML VIAL IV ONE (22:21)
[2022-10-22] MEDS ORDERED: METOPROLOL TARTRATE 50 MG TAB PO STA (22:22)
--- NOTE | 2022-10-22 23:19 | Emergency Department Note ---
History of Present Illness General Chief Complaint: Shortness of Breath/Dyspnea Stated Complaint: SHORTNESS OF BREATH Time Seen by Provider: 10/22/22 21:58 History of Present Illness Provider Complaint: shortness of breath Onset (ago): month(s) (1) Severity: moderate Consistency/Duration: + progressively worsening Relieved By: + nothing Exacerbated By: + exertion Associated symptoms: no chest pain, no fever, no wheezing, no sputum production, no orthopnea, no syncope, no abdominal pain or no chest congestion HPI Narrative: Patient is on Eliquis Related Data Home oxygen amount: 3 liters Home Medications Medication Instructions Recorded Confirmed Type calcium carbonate 600 mg-vitamin 1 cap PO HS 06/08/19 10/22/22 History D3 5 mcg (200 unit) capsule (Calcium 600 + D(3)) fluticasone propionate 50 2 spray intranasal DAILY PRN 06/08/19 10/22/22 History mcg/actuation nasal Congestion spray,suspension (Flonase Allergy Relief) hydrocodone 5 mg-acetaminophen 325 1 tab PO Q6H PRN Pain 06/08/19 10/22/22 History mg tablet omega 3 350 mg-dha 235 mg-epa 90 1 cap PO QAM 06/08/19 10/22/22 History mg-fish oil 597 mg capsule,delay rel ([place]-3) pravastatin 80 mg tablet 80 mg PO HS 06/08/19 10/22/22 History Lactobacillus acidophilus 10 10,000 mmu cells PO DAILY 10/22/22 10/22/22 History billion cell capsule (Probiotic) acetaminophen 650 mg 650 mg PO Q8H PRN Pain 10/22/22 10/22/22 History tablet,extended release (Tylenol 8 Hour) albuterol sulfate 90 mcg/actuation 2 puff inhalation Q6H PRN Wheezing 10/22/22 10/22/22 History aerosol inhaler apixaban 2.5 mg tablet (Eliquis) 2.5 mg PO BID 10/22/22 10/22/22 History aspirin 81 mg chewable tablet 81 mg PO DAILY 10/22/22 10/22/22 History budesonide-formoterol HFA 160 2 puff inhalation BID 10/22/22 10/22/22 History mcg-4.5 mcg/actuation aerosol inhaler (Symbicort) diltiazem HCl 120 mg 120 mg PO DAILY 10/22/22 10/22/22 History capsule,extended release 24 hr hydralazine 50 mg tablet 50 mg PO BID 10/22/22 10/22/22 History magnesium 250 mg tablet 250 mg PO DAILY 10/22/22 10/22/22 History metoprolol tartrate 25 mg tablet 37.5 mg PO BID 10/22/22 10/22/22 History tiotropium bromide 18 mcg capsule 1 cap inhalation DAILY 10/22/22 10/22/22 Hist ory with inhalation device (Spiriva with HandiHaler) valsartan 40 mg tablet See Rx Instructions .Route .COMPLEX 10/22/22 10/22/22 History Allergies Allergy/AdvReac Type Severity Reaction Status Date / Time No Known Allergies Allergy Verified 10/22/22 22:45 Past Med/Surg History Medical History CAD (coronary artery disease) CKD (chronic kidney disease), stage IV COPD (chronic obstructive pulmonary disease) GERD (gastroesophageal reflux disease) History of melanoma Excision to left forearm in / History of non-ST elevation myocardial infarction (NSTEMI) HLD (hyperlipidemia) HTN (hypertension) ABDIRIZAK (obstructive sleep apnea) intolerant to CPAP, On 2L oxygen HS Paroxysmal atrial fibrillation Pulmonary hypertension Spinal stenosis Stenosis of left subclavian artery S/P stent left subclavian on 04/21/17 TIA (transient ischemic attack) Surgical History History of cardiac cath 01/2017 - Right heart cath 04/02/17 left heart cath: mid LAD 20% stenosis, proximal circumflex to mid circumflex 85% stenosis s/p PCI left circumflex and LISANDRA. 90-95% left subclavian artery disease. [facility] History of cataract surgery History of cholecystectomy Family History Other Coronary heart disease Hypertension Social History Smoking Status: Former smoker Tobacco Type: Cigarettes Hx Alcohol Use: No Hx Substance Use: No Preferred Language: Welsh Communication Ability: Effective Beliefs That Will Affect Care: None marital status: Current Living Situation: Spouse Feels Safe at Home: Yes Assistive Devices: Glasses Physical Exam Vital Signs: Vital Signs - 24 hr 10/22/22 18:17 10/22/22 20:15 Temperature 36.0 C L Temperature Source Temporal Artery Sc an Pulse Rate 51 L Pulse Rate [Finger ] 61 Pulse Rhythm Regular Respiratory Rate 20 20 Respiratory Effort / Characteristics Non-Labored Sponta neous Respiratory Depth Normal Normal Respiratory Patter n Regular Blood Pressure 154/88 H Blood Pressure [Ri ght Arm] 174/90 H Blood Pressure Bela n 110 Blood Pressure Bela n [Right Arm] 118 Blood Pressure Pos ition Sitting Pulse Oximetry 98 96 Oxygen Delivery Me thod Nasal Cannula Nasal Cannula Oxygen Flow Rate 3 3 Sepsis Recent Feve r Within 48 Hours No Sepsis New/Unexpla ined Change in Men tim Status N/A Sepsis Action Take n by Nursing No Action Required Physical Exam: Physical Exam GENERAL: She is oriented to person, place, and time. She appears well-developed and well-nourished. She does not appear distressed. NECK: Normal range of motion. Neck supple. No JVD present. CV: Normal rate, regular rhythm, normal heart sounds and intact distal pulses. Palpable radial pulses bue. PULM/CHEST: Rhonchi bilaterally with inspiratory rales at the bases. ABD: The abdomen is soft. MUSC/SKEL: 2+ pitting edema of the bilateral lower extremities. SKIN: Skin is warm and dry. She is not diaphoretic. PSYCH: She has a normal mood and affect. Behavior is normal. Judgment and thought content normal. Course Course 2157: The patient was evaluated in room C8. A complete history and physical exam was performed Medical Decision Making Laboratory Data Attestation: I reviewed the patient's lab results. 10/22/22 20:15 10/22/22 20:15 Lab Results 10/22/22 10/22/22 10/22/22 Range/Units 20:15 20:15 20:15 WBC 9.66 (4.8-10.8) K/ul RBC 3.75 L (3.93-5.22) M/uL Hgb 12.1 (12.0-16.0) g/dl Hct 36.9 (34.1-44.9) % MCV 98.4 (80.0-100.0) fL MCH 32.3 (25.0-34.0) pg MCHC 32.8 (32.0-36.0) g/dL RDW Std Deviation 52.0 H (36.4-46.3) fL RDW Coeff of Jeffy 14.6 H (11.5-14.5) % Plt Count 243 (130-400) K/uL MPV 10.0 (9.4-12.3) fL Immature Gran % (Auto) 0.3 % Neut % (Auto) 74.0 % Lymph % (Auto) 13.6 % [place] % (Auto) 10.0 % Eos % (Auto) 1.4 % Baso % (Auto) 0.7 % Neut # (Auto) 7.14 H (1.4-6.5) K/uL Lymph # (Auto) 1.31 (1.2-3.4) K/uL [place] # (Auto) 0.97 H (0.24-0.82) K/uL Eos # (Auto) 0.14 (0-0.50) K/uL Baso # (Auto) 0.07 (0-0.2) K/uL Immature Gran # (Auto) 0.03 H (0.00-0.02) K/uL PT 11.8 (9.0-12.0) Seconds INR 1.1 (0.9-1.1) APTT 26.1 (21.0-31.0) Seconds PTT Ratio 0.9 Sodium 136 (136-145) mmol/L Potassium 4.5 (3.5-5.1) mmol/L Chloride 104 (98-107) mmol/L Carbon Dioxide 22 (21-32) mmol/L Anion Gap 10 (3-11) BUN 42 H (6-23) mg/dl Creatinine 2.92 H (0.6-1.2) mg/dl Est Cr Clr Drug Dosing Not Reportable Est GFR ( Amer) 16.2 ml/min Est GFR (Non-Af Amer) 14.0 ml/min BUN/Creatinine Ratio 14.4 (10-20) Glucose 127 H (70-99(Fasting)) mg/dl Calcium 9.4 (8.5-10.1) mg/dl Magnesium 2.6 H (1.7-2.4) mg/dl Total Bilirubin 0.8 (0.2-1.0) mg/dl AST 29 (13-39) U/L ALT 23 (7-52) U/L Alkaline Phosphatase 65 (34-104) U/L Troponin I High Sens (0-14) pg/ml B-Natriuretic Peptide (0-100) pg/ml Total Protein 7.0 (6.0-8.3) gm/dl Albumin 4.0 (3.4-5.0) gm/dl Globulin 3.0 (2.5-4.0) gm/dl Albumin/Globulin Ratio 1.3 (0.9-2) SARS-CoV-2, RNA, NAAT (NEGATIVE) 10/22/22 10/22/22 10/22/22 Range/Units 20:15 20:15 22:30 WBC (4.8-10.8) K/ul RBC (3.93-5.22) M/uL Hgb (12.0-16.0) g/dl Hct (34.1-44.9) % MCV (80.0-100.0) fL MCH (25.0-34.0) pg MCHC (32.0-36.0) g/dL RDW Std Deviation (36.4-46.3) fL RDW Coeff of Jeffy (11.5-14.5) % Plt Count (130-400) K/uL MPV (9.4-12.3) fL Immature Gran % (Auto) % Neut % (Auto) % Lymph % (Auto) % [place] % (Auto) % Eos % (Auto) % Baso % (Auto) % Neut # (Auto) (1.4-6.5) K/uL Lymph # (Auto) (1.2-3.4) K/uL [place] # (Auto) (0.24-0.82) K/uL Eos # (Auto) (0-0.50) K/uL Baso # (Auto) (0-0.2) K/uL Immature Gran # (Auto) (0.00-0.02) K/uL PT (9.0-12.0) Seconds INR (0.9-1.1) APTT (21.0-31.0) Seconds PTT Ratio Sodium (136-145) mmol/L Potassium (3.5-5.1) mmol/L Chloride (98-107) mmol/L Carbon Dioxide (21-32) mmol/L Anion Gap (3-11) BUN (6-23) mg/dl Creatinine (0.6-1.2) mg/dl Est Cr Clr Drug Dosing Est GFR ( Amer) ml/min Est GFR (Non-Af Amer) ml/min BUN/Creatinine Ratio (10-20) Glucose (70-99(Fasting)) mg/dl Calcium (8.5-10.1) mg/dl Magnesium (1.7-2.4) mg/dl Total Bilirubin (0.2-1.0) mg/dl AST (13-39) U/L ALT (7-52) U/L Alkaline Phosphatase (34-104) U/L Troponin I High Sens 50.2 H* (0-14) pg/ml B-Natriuretic Peptide 1676 H (0-100) pg/ml Total Protein (6.0-8.3) gm/dl Albumin (3.4-5.0) gm/dl Globulin (2.5-4.0) gm/dl Albumin/Globulin Ratio (0.9-2) SARS-CoV-2, RNA, NAAT NEGATIVE (NEGATIVE) Imaging Data Attestation: I personally reviewed and interpreted this imaging study as follows: Radiologist's Impression: Chest X-Ray 10/22/22 18:24 SINGLE VIEW CHEST CLINICAL HISTORY: Dyspnea FINDINGS: An AP, portable, upright chest radiograph is compared to study dated 06/08/2019. The heart is enlarged noting atherosclerotic calcification of the thoracic aorta. The pulmonary vasculature is noncongested. Chronic interstitial thickening similar to previous. There is bibasilar scarring/atelectasis. The lungs and pleural spaces are otherwise clear. No pneumothorax is seen. The skeletal structures are osteopenic. The bony thorax is grossly intact. Arthritic change is seen in the shoulders. IMPRESSION: Cardiomegaly with no active disease in the chest. ACT 112: Negative or not required by law. Electronically signed by: Mando Farley M.D. 10/22/2022 9:21 PM ECG Data Attestation: I personally reviewed and interpreted this ECG as follows: Interpretation: Sinus rhythm with rate of 61. VA 166 QRS [address] elevation or ST depression. PVCs present. MDM Narrative Cardiac monitoring: An order was placed for continuous cardiac monitoring. The monitor shows a rate of 60 with sinus rhythm Vital signs stable. Labs show normal white blood cell count hemoglobin stable. Creatinine elevated 2.92 this is below the patient's baseline of about 2.1. Troponin elevated 50.2 BNP elevated 1676 chest x-ray shows cardiomegaly with mild cephalization. Patient reporting no chest pain. Troponin elevation is thought to be due to being fluid overloaded. Given the patient's CKD we did discuss with hospitalist Dr. Newsome if we should give Lasix at this point. Dr. Newsome states he will evaluate the patient and decide what kind of diuretic and dosage to give the patient. Patient will be admitted to Dr. Newsome service. Impression & Plan Fluid overload, Acute kidney injury superimposed on CKD Discharge Plan Visit Data Chief Complaint: Shortness of Breath/Dyspnea Stated Complaint: SHORTNESS OF BREATH ED Provider: Hugo Orellana Discharge Problem: Fluid overload, Acute kidney injury superimposed on CKD Patient Disposition: Admitted As Inpatient Forms Stand Alone Forms: My [facility] Prescriptions Prescriptions: No Action pravastatin 80 mg tablet 80 mg PO HS Calcium 600 + D(3) 600 mg calcium- 200 unit Capsule 1 cap PO HS Alborn-3 350 mg-235 mg- 90 mg-597 mg Capsule,Delayed Release(Dr/Ec) 1 cap PO QAM hydrocodone-acetaminophen 5-325 mg Tablet 1 tab PO Q6H PRN (Reason: Pain) fluticasone propionate [Flonase Allergy Relief] 50 mcg/actuation [place],Suspension 2 spray INTRANASAL DAILY PRN (Reason: Congestion) acetaminophen [Tylenol 8 Hour] 650 mg Tablet Extended Release 650 mg PO Q8H PRN (Reason: Pain) aspirin 81 mg Tablet,Chewable 81 mg PO DAILY diltiazem HCl 120 mg Capsule,Extended Release 24hr 120 mg PO DAILY hydralazine 50 mg tablet 50 mg PO BID magnesium 250 mg Tablet 250 mg PO DAILY albuterol sulfate 90 mcg/actuation Hfa Aerosol Inhaler 2 puff INHALATION Q6H PRN (Reason: Wheezing) valsartan 40 mg tablet See Rx Instructions .ROUTE .COMPLEX Rx Instructions: 40 mg; TAKES 80 MG QAM, THEN 40 MG QHS. metoprolol tartrate 25 mg tablet 37.5 mg PO BID Spiriva with HandiHaler 18 mcg Capsule, W/Inhalation Device 1 cap INHALATION DAILY Rx Instructions: puncture 1 cap using device; one dose = 2 inhalations budesonide-formoterol [Symbicort] 160-4.5 mcg/actuation Hfa Aerosol Inhaler 2 puff INHALATION BID Eliquis 2.5 mg Tablet 2.5 mg PO BID Probiotic 10 billion cell Capsule 10,000 mmu cells PO DAILY Referrals Referrals: Jayce Sloan M.D. [Primary Care Provider] -
--- NOTE | 2022-10-22 23:56 | History & Physical Report ---
Date of Service October 22, 2022 Assessment & Plan (1) Exertional dyspnea: Plan: With fluid retention Possible right-sided heart failure from progression of pulmonary hypertension chronic respiratory failure on home O2, hx COPD, ABDIRIZAK (CPAP intolerance) Troponin elevation in the setting of kidney dysfunction (?new baseline) chronic diastolic heart failure, patient with signs of third spacing hx CAD status post stent/PVD Painful L GIB hx A. fib on Eliquis valvular heart disease (mild AR, moderate MR from 2019 ) hypertension, slightly elevated hyperlipidemia, on statin Rx hx TIA chronic anemia, hemoglobin at baseline Hyperglycemia rule out DM past tobacco abuse Medical telemetry Update TTE May benefit from inpatient Pulmonology consultation for pulmonary hypertension pending TTE results Follow troponin Baseline UA, monitor creatinine response to IV albumin challenge Hold losartan for now until baseline established CT abdomen pelvis Re: Painful L GIB Appropriate to hold Eliquis for now until CT results known Check hemoglobin A1c PT OT eval DVT prophylaxis. SCDs while Eliquis on hold DNR Patient daughter requesting updates providers. Katharina Ceballos, contact #[phone]. Text document was generated using [employer] voice recognition software. It may contain grammatical or spelling errors. Kindly contact undersigned for clarification of any documentation item in question. History of Present Illness Chief Complaint: Worsening exertional SOB, abdominal pain, rectal bleeding Primary Care Provider: Jayce Sloan M.D. History obtained from patient, family, and records. Medical history significant for chronic diastolic heart failure (EF 60 to 65%, TTE 2019 ), CAD status post stent, PVD, A. fib on Eliquis, valvular heart disease (mild AR, moderate MR from 2019 ), hypertension, hyperlipidemia, chronic respiratory failure on home O2, pulmonary hypertension, COPD, ABDIRIZAK (CPAP intolerance), history TIA, CRI (baseline creatinine 2.1 from 2019), chronic anemia (baseline hemoglobin 11 ), skin cancer status post surgery, past tobacco abuse. Last confinement June 2019 for A. fib with RVR. Patient has had worsening shortness of breath on exertion symptoms for the last few weeks. No actual chest pain. Possible fluid retention as per patient. Patient compliant with home medications. [facility] hunter skin diver told her her lungs were okay on recent outpatient visit. Patient directed to her [facility] counter former for further evaluation of symptoms. Upcoming appointment next month. Intermittent hematochezia with achy abdominal pain the last 2 weeks as per patient. No hematemesis/coffee-ground emesis. Patient brought by daughter to the ER for evaluation. Medical History as above Surgical History : Cholecystectomy Family History : Heart disease, stroke Personal/Social history : Past tobacco abuse, no EtOH intake Allergies Allergy/AdvReac Type Severity Reaction Status Date / Time No Known Allergies Allergy Verified 10/22/22 22:45 Home Medications Medication Instructions Recorded Confirmed Type calcium carbonate 600 mg-vitamin 1 cap PO HS 06/08/19 10/22/22 History D3 5 mcg (200 unit) capsule (Calcium 600 + D(3)) fluticasone propionate 50 2 spray intranasal DAILY PRN 06/08/19 10/22/22 History mcg/actuation nasal Congestion spray,suspension (Flonase Allergy Relief) hydrocodone 5 mg-acetaminophen 325 1 tab PO Q6H PRN Pain 06/08/19 10/22/22 History mg tablet omega 3 350 mg-dha 235 mg-epa 90 1 cap PO QAM 06/08/19 10/22/22 History mg-fish oil 597 mg capsule,delay rel ([place]-3) pravastatin 80 mg tablet 80 mg PO HS 06/08/19 10/22/22 History Lactobacillus acidophilus 10 10,000 mmu cells PO DAILY 10/22/22 10/22/22 History billion cell capsule (Probiotic) acetaminophen 650 mg 650 mg PO Q8H PRN Pain 10/22/22 10/22/22 History tablet,extended release (Tylenol 8 Hour) albuterol sulfate 90 mcg/actuation 2 puff inhalation Q6H PRN Wheezing 10/22/22 10/22/22 History aerosol inhaler apixaban 2.5 mg tablet (Eliquis) 2.5 mg PO BID 10/22/22 10/22/22 History aspirin 81 mg chewable tablet 81 mg PO DAILY 10/22/22 10/22/22 History budesonide-formoterol HFA 160 2 puff inhalation BID 10/22/22 10/22/22 History mcg-4.5 mcg/actuation aerosol inhaler (Symbicort) diltiazem HCl 120 mg 120 mg PO DAILY 10/22/22 10/22/22 History capsule,extended release 24 hr hydralazine 50 mg tablet 50 mg PO BID 10/22/22 10/22/22 History magnesium 250 mg tablet 250 mg PO DAILY 10/22/22 10/22/22 History metoprolol tartrate 25 mg tablet 37.5 mg PO BID 10/22/22 10/22/22 History tiotropium bromide 18 mcg capsule 1 cap inhalation DAILY 10/22/22 10/22/22 History with inhalation device (Spiriva with HandiHaler) valsartan 40 mg tablet See Rx Instructions .Route .COMPLEX 10/22/22 10/22/22 History Past Med/Surg History Medical History CAD (coronary artery disease) CKD (chronic kidney disease), stage IV COPD (chronic obstructive pulmonary disease) GERD (gastroesophageal reflux disease) History of melanoma Excision to left forearm in / History of non-ST elevation myocardial infarction (NSTEMI) HLD (hyperlipidemia) HTN (hypertension) ABDIRIZAK (obstructive sleep apnea) intolerant to CPAP, On 2L oxygen HS Paroxysmal atrial fibrillation Pulmonary hypertension Spinal stenosis Stenosis of left subclavian artery S/P stent left subclavian on 04/21/17 TIA (transient ischemic attack) Surgical History History of cardiac cath 01/2017 - Right heart cath 04/02/17 left heart cath: mid LAD 20% stenosis, proximal circumflex to mid circumflex 85% stenosis s/p PCI left circumflex and LISANDRA. 90-95% left subclavian artery disease. [facility] History of cataract surgery History of cholecystectomy Family History Other Coronary heart disease Hypertension Social History Smoking Status: Former smoker Tobacco Type: Cigarettes Second Hand Exposure: No; Do You Dip or Chew Tobacco: No; Tobacco Cessation Education Requested by Patient: No Hx Alcohol Use: No Hx Substance Use: No Preferred Language: Portuguese Communication Ability: Effective Water Mangle Tender Required: No Beliefs That Will Affect Care: None marital status: Current Living Situation: Alone Current Living Situation Comment: with Lee dominguez Other Information That Helps Us Care for You: No Feels Safe at Home: Yes Safety Concerns: Feels Safe At This Time Assistive Devices: Walker Review of Systems Review of Systems: As per HPI, all other systems reviewed and negative Physical Exam Physical Exam: GENERAL: Comfortable, pleasant, slightly anxious, no respiratory distress SKIN: Pallor, warm HEENT: [place] palpebral conjunctivae, no ptosis, dry buccal mucosa, nasal cannula in place NECK : Supple, no tenderness CHEST : Decreased breath sounds, no tenderness HEART : RRR, systolic murmur ABDOMEN: Some distention, nontender EXTREMITIES : Minimal LE swelling, no LE tenderness, no other conspicuous deformities noted NEUROLOGIC : Coherent, no facial asymmetry, no other gross focality Results & Data Results & Data ([facility]) Vital Signs (Past 12 Hours) Vital Signs Temp Pulse Pulse Resp BP BP Pulse Ox 10/22/22 20:15 61 20 174/90 H 96 10/22/22 18:17 36.0 C L 51 L 20 154/88 H 98 O2 Del Method O2 Flow Rate 10/22/22 20:15 Nasal Cannula 3 10/22/22 18:17 Nasal Cannula 3 Laboratory Results Laboratory Results WBC 9.66 K/ul (4.8-10.8) 10/22/22 20:15 RBC 3.75 M/uL (3.93-5.22) L 10/22/22 20:15 Hgb 12.1 g/dl (12.0-16.0) 10/22/22 20:15 Hct 36.9 % (34.1-44.9) 10/22/22 20:15 MCV 98.4 fL (80.0-100.0) 10/22/22 20:15 MCH 32.3 pg (25.0-34.0) 10/22/22 20:15 MCHC 32.8 g/dL (32.0-36.0) 10/22/22 20:15 RDW Std Deviation 52.0 fL (36.4-46.3) H 10/22/22 20:15 RDW Coeff of Jeffy 14.6 % (11.5-14.5) H 10/22/22 20:15 Plt Count 243 K/uL (130-400) 10/22/22 20:15 MPV 10.0 fL (9.4-12.3) 10/22/22 20:15 Immature Gran % (Auto) 0.3 % 10/22/22 20:15 Neut % (Auto) 74.0 % 10/22/22 20:15 Lymph % (Auto) 13.6 % 10/22/22 20:15 [place] % (Auto) 10.0 % 10/22/22 20:15 Eos % (Auto) 1.4 % 10/22/22 20:15 Baso % (Auto) 0.7 % 10/22/22 20:15 Neut # (Auto) 7.14 K/uL (1.4-6.5) H 10/22/22 20:15 Lymph # (Auto) 1.31 K/uL (1.2-3.4) 10/22/22 20:15 [place] # (Auto) 0.97 K/uL (0.24-0.82) H 10/22/22 20:15 Eos # (Auto) 0.14 K/uL (0-0.50) 10/22/22 20:15 Baso # (Auto) 0.07 K/uL (0-0.2) 10/22/22 20:15 Immature Gran # (Auto) 0.03 K/uL (0.00-0.02) H 10/22/22 20:15 PT 11.8 Seconds (9.0-12.0) 10/22/22 20:15 INR 1.1 (0.9-1.1) 10/22/22 20:15 APTT 26.1 Seconds (21.0-31.0) 10/22/22 20:15 PTT Ratio 0.9 10/22/22 20:15 Sodium 136 mmol/L (136-145) 10/22/22 20:15 Potassium 4.5 mmol/L (3.5-5.1) 10/22/22 20:15 Chloride 104 mmol/L (98-107) 10/22/22 20:15 Carbon Dioxide 22 mmol/L (21-32) 10/22/22 20:15 Anion Gap 10 (3-11) 10/22/22 20:15 BUN 42 mg/dl (6-23) H 10/22/22 20:15 Creatinine 2.92 mg/dl (0.6-1.2) H 10/22/22 20:15 Est Cr Clr Drug Dosing Not Reportable 10/22/22 20:15 Est GFR ( Amer) 16.2 ml/min 10/22/22 20:15 Est GFR (Non-Af Amer) 14.0 ml/min 10/22/22 20:15 BUN/Creatinine Ratio 14.4 (10-20) 10/22/22 20:15 Glucose 127 mg/dl (70-99(Fasting)) H 10/22/22 20:15 Calcium 9.4 mg/dl (8.5-10.1) 10/22/22 20:15 Magnesium 2.6 mg/dl (1.7-2.4) H 10/22/22 20:15 Total Bilirubin 0.8 mg/dl (0.2-1.0) 10/22/22 20:15 AST 29 U/L (13-39) 10/22/22 20:15 ALT 23 U/L (7-52) 10/22/22 20:15 Alkaline Phosphatase 65 U/L (34-104) 10/22/22 20:15 Troponin I High Sens 50.2 pg/ml (0-14) H* 10/22/22 20:15 B-Natriuretic Peptide 1676 pg/ml (0-100) H 10/22/22 20:15 Total Protein 7.0 gm/dl (6.0-8.3) 10/22/22 20:15 Albumin 4.0 gm/dl (3.4-5.0) 10/22/22 20:15 Globulin 3.0 gm/dl (2.5-4.0) 10/22/22 20:15 Albumin/Globulin Ratio 1.3 (0.9-2) 10/22/22 20:15 SARS-CoV-2, RNA, NAAT NEGATIVE (NEGATIVE) 10/22/22 22:30 Impressions Chest X-Ray 10/22/22 18:24 SINGLE VIEW CHEST CLINICAL HISTORY: Dyspnea FINDINGS: An AP, portable, upright chest radiograph is compared to study dated 06/08/2019. The heart is enlarged noting atherosclerotic calcification of the thoracic aorta. The pulmonary vasculature is noncongested. Chronic interstitial thickening similar to previous. There is bibasilar scarring/atelectasis. The lungs and pleural spaces are otherwise clear. No pneumothorax is seen. The skeletal structures are osteopenic. The bony thorax is grossly intact. Arthritic change is seen in the shoulders. IMPRESSION: Cardiomegaly with no active disease in the chest. ACT 112: Negative or not required by law. Electronically signed by: Mando Farley M.D. 10/22/2022 9:21 PM Diagnostic Findings EKG as per my interpretation : Rate 60, NSR, normal axis, diffuse T wave abnormalities anterolateral leads
[2022-10-23] MEDS ORDERED: PROMETHAZINE HCL 6.25 MG in SODIUM CHLORIDE 0.9% 50 ML IV PRN (02:41)
[2022-10-23] MEDS ORDERED: FLUTICASONE PROPIONATE NA SPR 16 GM BTL PRN (02:41)
[2022-10-23] MEDS ORDERED: HYDROCODONE/ACETAMOPHEN 5/325MG TAB PO PRN (02:41)
[2022-10-23] MEDS ORDERED: ACETAMINOPHEN 325 MG TAB PO PRN (03:26)
[2022-10-23 05:03] LABS: Basophils # (auto) 0.07 K/uL (0-0.2); Basophils % (auto) 0.8 %; Eosinophils # (auto) 0.22 K/uL (0-0.50); Eosinophils % (auto) 2.5 %; Hematocrit (blood only) 33.2 % (34.1-44.9); Immature Granulocytes # (auto) 0.03 K/uL (0.00-0.02); Immature Granulocytes % (auto) 0.3 %; Lymphocytes # (auto) 1.22 K/uL (1.2-3.4); Lymphocytes % (auto) 14.1 %; Mean Corpuscular Hemoglobin 32.4 pg (25.0-34.0); Mean Corpuscular Hgb Conc 33.1 g/dL (32.0-36.0); Mean Corpuscular Volume 97.9 fL (80.0-100.0); Monocytes # (auto) 0.98 K/uL (0.24-0.82); Monocytes % (auto) 11.3 %; Neutrophils # (auto) 6.13 K/uL (1.4-6.5); Platelet Count 204 K/uL (130-400); RDW Coefficient of Variation 14.6 % (11.5-14.5); RDW Standard Deviation 52.5 fL (36.4-46.3); Red Blood Count 3.39 M/uL (3.93-5.22); White Blood Count 8.65 K/ul (4.8-10.8)
[2022-10-23 05:30] LABS: BUN Creatinine Ratio 14.7 (10-20); Calcium 9.3 mg/dl (8.5-10.1); Creatinine Clr Calc Pharmacy 14.3 ml/min; Est GFR (African American) 17.2 ml/min; Est GFR (Non-African American) 14.8 ml/min
[2022-10-23 06:33] LABS: Estimated Average Glucose 120 mg/dl; Hemoglobin A1C 5.8 % (4.5-5.6)
--- NOTE | 2022-10-23 08:21 | CT Scan Report ---
CT abd pelvis wo con CLINICAL HISTORY: abd pain, lgib TECHNIQUE: Helical axial images of the abdomen and pelvis were obtained. Automated dose lowering tech niques and/or adjustment according to patient size were utilized for this exam. This exam was perfor med without intravenous contrast. CT DOSE: 307.70 mGy.cm COMPARISON: None available at the time of this dictation. FINDINGS: Lower chest: Cardiomegaly with marked biatrial enlargement and mitral annular calcifications noted. Liver: Unremarkable. No focal lesions are seen. Gallbladder and biliary tree: Patient is status post cholecystectomy. No intra- or extrahepatic bilia ry ductal dilation. Pancreas: Unremarkable, no focal lesions. Spleen: Unremarkable. Adrenals: Unremarkable. Kidneys and ureters: Innumerable bilateral renal cysts are seen. Bladder: Unremarkable. Reproductive organs: Unremarkable. Bowel: A large hiatal hernia is seen. Extensive diverticulosis is seen without evidence of diverticul itis. Lymph nodes Retroperitoneal: Unremarkable. Pelvic: Unremarkable. Mesenteric: Unremarkable. Peritoneum: Normal. Vessels: Atherosclerotic calcifications are seen. Abdominal wall: Unremarkable. Bones: Degenerative changes in the visualized spine. IMPRESSION: 1. No acute abnormalities are seen in this patient with rectal bleeding. 2. Diverticulosis without diverticulitis. 3. Large hiatal hernia. 4. Status post cholecystectomy. 5. Cardiomegaly. 6. Innumerable renal cysts are seen. ACT 112: Negative or not required by law. Electronically signed by: Kenney Brown M.D. 10/23/2022 8:20 AM
[2022-10-23] MEDS: METOPROLOL TARTRATE 25 MG TAB PO SCH ×2 (08:24→19:55)
[2022-10-23] MEDS: hydrALAZINE TAB 50 MG TAB PO SCH ×2 (08:33→19:54)
[2022-10-23] MEDS ORDERED: FLUTICASONE/VILANTEROL 100/25MCG 14 PUFFS/INHALER INH SCH (09:00)
[2022-10-23] MEDS ORDERED: ADVANCED PROBIOTIC 1250 MG CAPSULE PO SCH (09:00)
[2022-10-23] MEDS ORDERED: dilTIAZem HCL 120 MG CAPCR PO SCH (09:00)
[2022-10-23] MEDS ORDERED: UMECLIDINIUM BROMIDE 62.5MCG/BLISTER 7 PUFFS/INHALER INH SCH (09:00)
--- NOTE | 2022-10-23 15:00 | CT Scan Report ---
HEAD CT NONCONTRAST CT DOSE: 537.48 mGy.cm HISTORY: Dizziness, Hx of traumatic brain injury TECHNIQUE: Multiaxial CT images of the head were performed without the use of intravenous contrast. A utomated exposure control was utilized for this study. A dose lowering technique was utilized adheri ng to the principles of ALARA. Comparison: None. Findings: The paranasal sinuses and mastoid air cells are clear. The calvarium and skull base are int act. There is no mass, hematoma, midline shift, acute infarct. White matter hypodensity is nonspecifi c but suggestive of microvascular ischemic change. The ventricles and sulci demonstrate mild age-rela yeni involutional changes. Impression: No acute intracranial abnormality. Atrophy and microvascular ischemic changes. ACT 112: Negative or not required by law. Electronically signed by: Greg Marshall M.D. 10/23/2022 2:59 PM
--- NOTE | 2022-10-23 16:54 | Hospitalist Progress Note ---
Date of Service October 23, 2022 Assessment & Plan (1) Exertional dyspnea: (2) Fluid overload: (3) Acute kidney injury superimposed on CKD: (4) Paroxysmal atrial fibrillation: (5) Pulmonary hypertension: Plan Past medical history of chronic diastolic heart failure, CAD, A. fib on Eliquis, pulmonary hypertension, ABDIRIZAK (CPAP intolerant). Presents with exertional dyspnea and dizziness. Hypertensive on admission. Afebrile. Saturating at 4 L of oxygen. At home on 2 to 3 L of oxygen. Chest x-ray does not show significant pulmonary edema. Creatinine up trended to 2.78; creatinine was 2.1 in 2019. High-sensitivity troponin down trended from 50-46.9. BNP elevated to 1676 CT head does not show any acute intracranial abnormality. Abdominal CT does not show any acute abnormality. Diverticulosis present without diverticulitis. Plan; Exertional dyspnea likely multifactorial. Due to pulmonary hypertension and CKD. Await echocardiogram. Obtain urinalysis; no hydronephrosis on CT abdomen. Will monitor BMP tomorrow. Will consult nephrology for progression of CKD versus RAMESH. Patient will likely benefit from being on some form of diuretics. Continue to hold losartan. Other conditions; A. fibcontinue on Cardizem, metoprolol. Will resume Eliquis. CADcontinue on pravastatin, metoprolol and aspirin. COPDcontinue on inhalers Hypertensioncontinue on hydralazine, Cardizem, metoprolol. Losartan currently on hold. DNR/DNI DVT prophylaxis Eliquis Admission and Anticipated Discharge Date Admission Date: October 22, 2022 Subjective Patient seen and examined at bedside. She is comfortable; not in any distress. Reports that her abdominal pain has resolved. No dizziness at rest; no chest pa in or shortness of breath. Review of Systems Review of Systems: All systems reviewed & are unremarkable except as noted in Subjective Physical Exam Physical Exam: Constitutional: Alert orient x3; not in any distress. On 4 L of oxygen. Respiratory: normal respiratory effort, lungs clear to auscultation, no wheeze, rales, rhonchi. Normal insp/exp effort, no accessory muscle use Cardiovascular: RRR, no murmur, no edema Vessels: no JVD or carotid bruit Chest: Bilateral clear breath sound. Abdomen: normal bowel sounds, soft, nontender, no hepatosplenomegaly Musculoskeletal: Minimal edema. Skin: no rashes, warm and dry normal turgor Neurologic: No focal deficit. Psychiatric: A+Ox3, euthymic affect Lymphatic: no cervical or axillary lymphadenopathy : deferred Results & Data Results & Data ([facility]) Vital Signs (Past 12 Hours) Vital Signs Pulse Resp BP Pulse Ox Pulse Ox O2 Del Method O2 Flow Rate 10/23/22 14:33 96 10/23/22 11:30 59 L 18 95 Nasal Cannula 4 10/23/22 11:00 62 18 10/23/22 10:30 62 17 93 Nasal Cannula 4 10/23/22 10:00 60 16 94 Nasal Cannula 4 10/23/22 09:30 66 13 94 Nasal Cannula 4 10/23/22 09:00 62 18 99 Nasal Cannula 4 10/23/22 08:30 60 14 94 Nasal Cannula 4 10/23/22 08:15 58 L 20 96 Nasal Cannula 4 10/23/22 08:00 59 L 17 93 Nasal Cannula 4 10/23/22 07:45 58 L 14 94 Nasal Cannula 4 10/23/22 07:30 62 20 157/78 H 93 Nasal Cannula 4 10/23/22 07:15 58 L 17 10/23/22 07:00 58 L 18 10/23/22 06:50 56 L 16 10/23/22 06:40 58 L 16 10/23/22 06:31 58 L 23 97 3 10/23/22 06:20 60 11 L 10/23/22 06:10 60 19 10/23/22 06:00 60 14 10/23/22 05:50 60 17 10/23/22 05:40 59 L 15 10/23/22 05:30 57 L 16 10/23/22 05:20 56 L 17 10/23/22 05:10 56 L 15 10/23/22 05:00 59 L 19 10/23/22 04:50 58 L 18 O2 Flow Rate 10/23/22 14:33 4 10/23/22 11:30 10/23/22 11:00 10/23/22 10:30 10/23/22 10:00 10/23/22 09:30 10/23/22 09:00 10/23/22 08:30 10/23/22 08:15 10/23/22 08:00 10/23/22 07:45 10/23/22 07:30 10/23/22 07:15 10/23/22 07:00 10/23/22 06:50 10/23/22 06:40 10/23/22 06:31 10/23/22 06:20 10/23/22 06:10 10/23/22 06:00 10/23/22 05:50 10/23/22 05:40 10/23/22 05:30 10/23/22 05:20 10/23/22 05:10 10/23/22 05:00 10/23/22 04:50 Laboratory Results Laboratory Results WBC 8.65 K/ul (4.8-10.8) 10/23/22 04:45 RBC 3.39 M/uL (3.93-5.22) L 10/23/22 04:45 Hgb 11.0 g/dl (12.0-16.0) L 10/23/22 04:45 Hct 33.2 % (34.1-44.9) L 10/23/22 04:45 MCV 97.9 fL (80.0-100.0) 10/23/22 04:45 MCH 32.4 pg (25.0-34.0) 10/23/22 04:45 MCHC 33.1 g/dL (32.0-36.0) 10/23/22 04:45 RDW Std Deviation 52.5 fL (36.4-46.3) H 10/23/22 04:45 RDW Coeff of Jeffy 14.6 % (11.5-14.5) H 10/23/22 04:45 Plt Count 204 K/uL (130-400) 10/23/22 04:45 MPV 10.0 fL (9.4-12.3) 10/23/22 04:45 Immature Gran % (Auto) 0.3 % 10/23/22 04:45 Neut % (Auto) 71.0 % 10/23/22 04:45 Lymph % (Auto) 14.1 % 10/23/22 04:45 [place]son % (Auto) 11.3 % 10/23/22 04:45 Eos % (Auto) 2.5 % 10/23/22 04:45 Baso % (Auto) 0.8 % 10/23/22 04:45 Neut # (Auto) 6.13 K/uL (1.4-6.5) 10/23/22 04:45 Lymph # (Auto) 1.22 K/uL (1.2-3.4) 10/23/22 04:45 [place]son # (Auto) 0.98 K/uL (0.24-0.82) H 10/23/22 04:45 Eos # (Auto) 0.22 K/uL (0-0.50) 10/23/22 04:45 Baso # (Auto) 0.07 K/uL (0-0.2) 10/23/22 04:45 Immature Gran # (Auto) 0.03 K/uL (0.00-0.02) H 10/23/22 04:45 PT 11.8 Seconds (9.0-12.0) 10/22/22 20:15 INR 1.1 (0.9-1.1) 10/22/22 20:15 APTT 26.1 Seconds (21.0-31.0) 10/22/22 20:15 PTT Ratio 0.9 10/22/22 20:15 Sodium 138 mmol/L (136-145) 10/23/22 04:45 Potassium 4.0 mmol/L (3.5-5.1) 10/23/22 04:45 Chloride 106 mmol/L (98-107) 10/23/22 04:45 Carbon Dioxide 22 mmol/L (21-32) 10/23/22 04:45 Anion Gap 10 (3-11) 10/23/22 04:45 BUN 41 mg/dl (6-23) H 10/23/22 04:45 Creatinine 2.78 mg/dl (0.6-1.2) H 10/23/22 04:45 Est Cr Clr Drug Dosing 14.3 ml/min 10/23/22 04:45 Est GFR ( Amer) 17.2 ml/min 10/23/22 04:45 Est GFR (Non-Af Amer) 14.8 ml/min 10/23/22 04:45 BUN/Creatinine Ratio 14.7 (10-20) 10/23/22 04:45 Glucose 100 mg/dl (70-99(Fasting)) H 10/23/22 04:45 Estimat Average Glucose 120 mg/dl 10/22/22 20:15 Hemoglobin A1c 5.8 % (4.5-5.6) H 10/22/22 20:15 Calcium 9.3 mg/dl (8.5-10.1) 10/23/22 04:45 Magnesium 2.6 mg/dl (1.7-2.4) H 10/22/22 20:15 Total Bilirubin 0.8 mg/dl (0.2-1.0) 10/22/22 20:15 AST 29 U/L (13-39) 10/22/22 20:15 ALT 23 U/L (7-52) 10/22/22 20:15 Alkaline Phosphatase 65 U/L (34-104) 10/22/22 20:15 Troponin I High Sens 46.9 pg/ml (0-14) H 10/23/22 07:48 B-Natriuretic Peptide 1676 pg/ml (0-100) H 10/22/22 20:15 Total Protein 7.0 gm/dl (6.0-8.3) 10/22/22 20:15 Albumin 4.0 gm/dl (3.4-5.0) 10/22/22 20:15 Globulin 3.0 gm/dl (2.5-4.0) 10/22/22 20:15 Albumin/Globulin Ratio 1.3 (0.9-2) 10/22/22 20:15 TSH 3.023 uIu/ml (0.300-4.500) 10/22/22 20:15 SARS-CoV-2, RNA, NAAT NEGATIVE (NEGATIVE) 10/22/22 22:30 Blood Type A Positive 10/23/22 04:45 Antibody Screen NEGATIVE 10/23/22 04:45 Impressions Chest X-Ray 10/22/22 18:24 SINGLE VIEW CHEST CLINICAL HISTORY: Dyspnea FINDINGS: An AP, portable, upright chest radiograph is compared to study dated 06/08/2019. The heart is enlarged noting atherosclerotic calcification of the thoracic aorta. The pulmonary vasculature is noncongested. Chronic interstitial thickening similar to previous. There is bibasilar scarring/atelectasis. The lungs and pleural spaces are otherwise clear. No pneumothorax is seen. The skeletal structures are osteopenic. The bony thorax is grossly intact. Arthritic change is seen in the shoulders. IMPRESSION: Cardiomegaly with no active disease in the chest. ACT 112: Negative or not required by law. Electronically signed by: Mando Farley M.D. 10/22/2022 9:21 PM Abdomen/Pelvis CT 10/22/22 23:56 CT abd pelvis wo con CLINICAL HISTORY: abd pain, lgib TECHNIQUE: Helical axial images of the abdomen and pelvis were obtained. Automat ed dose lowering techniques and/or adjustment according to patient size were utilized for this exam. This exam was performed without intravenous contrast. CT DOSE: 307.70 mGy.cm COMPARISON: None available at the time of this dictation. FINDINGS: Lower chest: Cardiomegaly with marked biatrial enlargement and mitral annular calcifications noted. Liver: Unremarkable. No focal lesions are seen. Gallbladder and biliary tree: Patient is status post cholecystectomy. No intra- or extrahepatic biliary ductal dilation. Pancreas: Unremarkable, no focal lesions. Spleen: Unremarkable. Adrenals: Unremarkable. Kidneys and ureters: Innumerable bilateral renal cysts are seen. Bladder: Unremarkable. Reproductive organs: Unremarkable. Bowel: A large hiatal hernia is seen. Extensive diverticulosis is seen without evidence of diverticulitis. Lymph nodes Retroperitoneal: Unremarkable. Pelvic: Unremarkable. Mesenteric: Unremarkable. Peritoneum: Normal. Vessels: Atherosclerotic calcifications are seen. Abdominal wall: Unremarkable. Bones: Degenerative changes in the visualized spine. IMPRESSION: 1. No acute abnormalities are seen in this patient with rectal bleeding. 2. Diverticulosis without diverticulitis. 3. Large hiatal hernia. 4. Status post cholecystectomy. 5. Cardiomegaly. 6. Innumerable renal cysts are seen. ACT 112: Negative or not required by law. Electronically signed by: Kenney Brown M.D. 10/23/2022 8:[address] 10/23/22 12:[address] DOSE: 537.48 mGy.cm HISTORY: Dizziness, Hx of traumatic brain injury TECHNIQUE: Multiaxial CT images of the head were performed without the use of intravenous contrast. Automated exposure control was utilized for this study. A dose lowering technique was utilized adhering to the principles of ALARA. Comparison: None. Findings: The paranasal sinuses and mastoid air cells are clear. The calvarium and skull base are intact. There is no mass, hematoma, midline shift, acute infarct. White matter hypodensity is nonspecific but suggestive of microvascular ischemic change. The ventricles and sulci demonstrate mild age-related involutional changes. Impression: No acute intracranial abnormality. Atrophy and microvascular ischemic changes. ACT 112: Negative or not required by law. Electronically signed by: Greg Marshall M.D. 10/23/2022 2:59 PM
[2022-10-23 18:46] LABS: Appearance Urine Clear (Clear); Bacteria Urine Automated Negative (Negative); Bilirubin Urine Negative (Negative); Blood Urine Negative (Negative); Color Urine Yellow; Glucose Urine UA Negative (Negative); Ketones Urine Negative (Negative); Leukocyte Esterase Urine 1+ (Negative); Nitrite Urine Negative (Negative); Protein Urine 1+ (Negative); RBC Urine Automated 0-4 /hpf (0-4); Specific Gravity Urine 1.013 (1.000-1.030); Urobilinogen Urine Negative (Negative); pH Urine 6.5 (4.5-7.5)
[2022-10-23] MEDS ORDERED: PRAVASTATIN SOD 40 MG TAB PO SCH (21:00)
[2022-10-23] MEDS ORDERED: ONDANSETRON INJ 2 MG/ML 2 ML VIAL IV STA (22:52)
[2022-10-23] MEDS ORDERED: ATROPINE SO4 1 MG/ML 1ML VIAL ONE (23:54)
[2022-10-24] MEDS ORDERED: ATROPINE SULFATE 0.1 MG/ML 10ML SYR IV STA (00:04)
--- NOTE | 2022-10-24 06:43 | Electrocardiogram Report ---
Test Reason : Blood Pressure : / mmHG Vent. Rate : 061 BPM Atrial Rate : 061 BPM P-R Int : 166 ms QRS Dur : 076 ms QT Int : 446 ms P-R-T Axes : 076 054 047 degrees QTc Int : 448 ms Sinus rhythm with occasional Premature ventricular complexes Nonspecific T wave abnormality Abnormal ECG When compared with ECG of 10-JUN-2019 07:04, Premature ventricular complexes are now Present Confirmed by Rick Tyler ([id number]) on 10/24/2022 6:42:51 AM Referred By: REFERRED SELF Confirmed By:Rick Tyler
--- NOTE | 2022-10-24 07:50 | Death Pronouncement Note ---
Date of Service October 24, 2022 Pronouncement Note Admission Date October 22, 2022 Date and Time of Date of : 10/24/22 Time of : 00:06 Preliminary Cause of (1) Bradycardia: (2) Acute kidney injury superimposed on CKD: (3) CHF (congestive heart failure): (4) ABDIRIZAK (obstructive sleep apnea): Contributing Factors Pulmonary hypertension CAD Additional Data Confirmation of : no pulse, no respirations, no heart sounds and pupils fixed and dilated Family: contacted Attending physician: Yevgeniy Garcia MD
--- NOTE | 2022-10-24 07:55 | Communication Note ---
Date of Service: October 24, 2022 Was called as patient heart rates in 30's and patient not doing good. Patient was unresponsive. SBP in 70's. EKG showed bradycardia. HR in 30's. Patient is DNR/DNI. Ordered 250cc fluid bolus. Called Daughter and she wanted to honor her mother wishes and seemed ok for any further treatments. Also called ICU and meanwhile ordered stat atropine. But patient rapidly deteriorated and before she got atropine at 12:06am today October 24 2022.Called family again and notified both the daughters.
--- NOTE | 2022-10-24 08:31 | Communication Note ---
Date of Service: October 24, 2022 Possible cause could be acute respiratory failure secondary to acute diastolic chf, Pulmonary hypertension, possible cardiogenic shock,Possible PE or RI.
[2022-10-24] MEDS ORDERED: ASPIRIN 81 MG CHEW PO SCH (09:00)
[2022-10-24] MEDS ORDERED: APIXABAN 2.5 MG TAB PO SCH (09:00)
--- NOTE | 2022-10-24 16:28 | Discharge Summary ---
Date of Service October 24, 2022 Admission HPI Per Admitting Provider History obtained from patient, family, and records. Medical history significant for chronic diastolic heart failure (EF 60 to 65%, TTE 2019 ), CAD status post stent, PVD, A. fib on Eliquis, valvular heart disease (mild AR, moderate MR from 2019 ), hypertension, hyperlipidemia, chronic respiratory failure on home O2, pulmonary hypertension, COPD, ABDIRIZAK (CPAP intolerance), history TIA, CRI (baseline creatinine 2.1 from 2019), chronic anemia (baseline hemoglobin 11 ), skin cancer status post surgery, past tobacco abuse. Last confinement June 2019 for A. fib with RVR. Patient has had worsening shortness of breath on exertion symptoms for the last few weeks. No actual chest pain. Possible fluid retention as per patient. Patient compliant with home medications. [facility] chocolate finisher operator told her her lungs were okay on recent outpatient visit. Patient directed to her [facility] fibreglass laminator for further evaluation of symptoms. Upcoming appointment next month. Intermittent hematochezia with achy abdominal pain the last 2 weeks as per patient. No hematemesis/coffee-ground emesis. Patient brought by daughter to the ER for evaluation. Medical History as above Surgical History : Cholecystectomy Family History : Heart disease, stroke Personal/Social history : Past tobacco abuse, no EtOH intake Admission Exam Per Admitting Provider GENERAL: Comfortable, pleasant, slightly anxious, no respiratory distress SKIN: Pallor, warm HEENT: [place] palpebral conjunctivae, no ptosis, dry buccal mucosa, nasal cannula in place NECK : Supple, no tenderness CHEST : Decreased breath sounds, no tenderness HEART : RRR, systolic murmur ABDOMEN: Some distention, nontender EXTREMITIES : Minimal LE swelling, no LE tenderness, no other conspicuous deformities noted NEUROLOGIC : Coherent, no facial asymmetry, no other gross focality Principal Diagnosis Possible cardiogenic shock secondary to bradycardia Acute hypoxic respiratory failure Severe pulmonary hypertension due to ABDIRIZAK ABDIRIZAK (CPAP intolerant) Discharge Exam Not examined Discharge Data Allergies Allergy/AdvReac Type Severity Reaction Status Date / Time No Known Allergies Allergy Verified 10/22/22 22:45 Consultations 10/22/22 22:09 ED Decision to Admit Stat Ordered Studies 10/22/22 23:56 CT Abd and Pelvis [CT abd pelvis wo con] Urgent 10/23/22 12:[address] [CT head/brain wo con] Urgent Hospital Course (1) Bradycardia: (2) Acute kidney injury superimposed on CKD: (3) CHF (congestive heart failure): (4) ABDIRIZAK (obstructive sleep apnea): Plan Patient is a 87-year-old female past medical history of chronic diastolic heart failure, CAD, A. fib on Eliquis, pulmonary hypertension, ABDIRIZAK (CPAP intolerant) who presented to the ED with exertional dyspnea and dizziness. On presentation to the ED, her blood pressure was 154/88, afebrile and saturating well at 4 L of oxygen by nasal cannula. Her lab work was significant for elevated creatinine of 2.78; last creatinine was 2.1 in 2019 as per medical records. High- sensitivity troponin was 50; repeat was 46.9. EKG showed normal sinus rhythm with occasional PVC; nonspecific T wave changes. Chest x-ray did not show any significant pulmonary edema. CT head was done as patient had complained of dizziness; no acute abnormality was found. Abdominal CT did not show any acute abnormality as well. Patient was admitted to the telemetry floor for further management. Echocardiogram was done which showed normal LV chamber size with moderate concentric LVH, EF of 60 to 65%; pulmonary hypertension with PA systolic pressure of 68 mmHg. At 12 AM, patient started to be bradycardic gradually; patient desaturated; was placed on 15 L of nonrebreather mask. P atient became unresponsive; telemetry showed asystole. No resuscitation was done as per patient's wishes. She was pronounced at 12:06 a.m. Total Time Total Time Spent Total Time Spent (In Minutes): 10 Total Time Includes: Other Discharge Plan Discharge Items Patient Disposition: Other Date/Time: 10/24/22 00:06
--- NOTE | 2022-10-25 10:28 | Electrocardiogram Report ---
Test Reason : Blood Pressure : / mmHG Vent. Rate : 038 BPM Atrial Rate : 039 BPM P-R Int : 000 ms QRS Dur : 076 ms QT Int : 498 ms P-R-T Axes : 065 077 -08 degrees QTc Int : 395 ms Poor data quality, interpretation may be adversely affected Possible Sinus bradycardia Low voltage QRS Nonspecific T wave abnormality Abnormal ECG When compared with ECG of 22-OCT-2022 20:13, Vent. rate has decreased by 23 bpm Confirmed by Rick Tyler ([id number]) on 10/25/2022 10:28:05 AM Referred By: REFERRED SELF Confirmed By:Rick Tyler
== END 2022-10-24 03:44 | disposition expired | DRG 682 ==
LOC: ED 17:51 → EDINP 23:58 → 2N 10-23 02:40